=== PATIENT | female | born 1930 | race Asian ===

== ENCOUNTER 2016-08-19 09:01 | Emergency (ER) | payer OTHER, MEDICAID ==
[2016-08-19 09:19] VITALS: PULSE 85; RESP 18; TEMP 98
[2016-08-19] MEDS ORDERED: diphenhydrAMINE 25 MG CAP PO ONE (09:21)
[2016-08-19] MEDS ORDERED: FAMOTIDINE 20 MG TAB PO ONE (09:21)
[2016-08-19] MEDS ORDERED: predniSONE 20 MG TAB PO ONE (09:21)
--- NOTE | 2016-08-19 09:26 | EDPHY ---
H & P Time Seen by Provider: 08/19/16 09:10 HPI/ROS: HPI Itchy rash. 85-year-old female, Mandarin [place]. With daughter. Patient was mowing the lawn on Wednesday. Shortly after that she developed an itchy rash on her legs and arms starting from her hands up to her mid arm and her ankles up to her mid thigh. She describes having continued itching and irritation to these areas. She denies any oral involvement. She has not had any shortness of breath or wheezing. No sensation of swelling in her throat or difficulty swallowing. No voice changes. She denies any involvement of her trunk, neck or face. She has never had this before. No new medications. No other complaints. ROS: Constitutional: No fever, no chills. No weakness. Eyes: No discharge. No changes in vision. ENT: No sore throat. No nasal congestion or rhinorrhea. Respiratory: No cough. No shortness of breath. Cardiac: No chest pain, no palpitations. Gastrointestinal: No abdominal pain, no vomiting, no diarrhea. Genitourinary: No hematuria. No dysuria or increased frequency with urination. Musculoskeletal: No back pain. No neck pain. No myalgias or arthralgias. Skin: As above. Neurological: No headache. No focal weakness or altered sensation. Past medical history: Denies any significant past medical history. No prescription medications. Social history: Here with her daughter. Speaks Mandarin [place]ian only. Physical Exam: General Appearance: Alert, no distress. This patient is responding to questions appropriately and in full sentences. This patient appears well- hydrated and well-nourished. Eyes: Pupils equal and round no pallor or injection. No lid edema, erythema or injection. ENT, Mouth: Mucous membranes are moist. The pharyngeal tissues are unremarkable. No edema or swelling. No asymmetry suggestive of abscess. No erythema or exudates. Respiratory: There are no retractions, lungs are clear to auscultation with good air movement bilaterally. Cardiovascular: Regular rate and rhythm. No murmur. Neurological: Motor sensory function is grossly intact. Cranial nerves are normal. Gait is normal. Skin: Warm and dry, diffuse, mildly erythematous, blanching rash with some scabbed areas from the patient scratching over the hands and up through the forearms to the elbow and involving the ankles up through the distal thigh area anteriorly. No petechiae. No warmth. There is mild edema associated with the rash. Musculoskeletal: Neck is supple and nontender. Extremities are symmetrical. All joints range without pain or impingement. Psychiatric: No agitation. No depression. Database: EKG: Imaging: Procedures: Emergency department course: After my evaluation, and review of the patient's allergy history. She was given 40 mg of oral Pepcid, 50 mg of oral Benadryl and 60 mg of oral prednisone. History as well as management plan in the emergency department as an outpatient were all reviewed with the patient and her daughter by chimney repairer. Plan will be to send her home with prescriptions for these medications to be taken over the next 2-3 days. She has not been instructed to follow up with her primary care physician for re-evaluation at this time. Her vital signs have been reviewed. Customary return to emergency department precautions discussed. All of their questions were answered. She was discharged in good condition. Differential Diagnosis: The differential diagnosis on this patient includes but is not limited to hypersensitivity dermatitis. Anaphylaxis, erythema multiforme, TEN, pemphigus vulgaris, bolus pemphigoid unlikely. This represents a partial list of diagnoses considered. These considerations are based on history, physical exam , past history, reassessment and diagnostic testing. Smoking Status: Never smoked Constitutional: Initial Vital Signs Temperature (C) 36.6 C 08/19/16 09:17 Heart Rate 85 08/19/16 09:17 Respiratory Rate 18 08/19/16 09:17 Blood Pressure 120/66 08/19/16 09:17 O2 Sat (%) 97 08/19/16 09:17 O2 Delivery Mode Room Air Allergies/Adverse Reactions: No Known Allergies Allergy (Unverified 08/19/16 09:15) Home Medications: Medication Instructions Recorded Famotidine [Pepcid] 40 mg PO BID #12 tab 08/19/16 diphenhydrAMINE [Benadryl 50 MG 50 mg PO Q8HRS PRN #9 cap 08/19/16 (*)] predniSONE [prednisone 20mg (RX)] 60 mg PO DAILY #9 tab 08/19/16 Departure - Departure Disposition: Home, Routine, Self-Care Clinical Impression: Rash, Allergic reaction Condition: Good Instructions: Acute Rash (ED), General Allergic Reaction (ED) Additional Instructions: Read and follow provided instructions. Follow-up with your primary care physician in 2-3 days for re-evaluation. Take medication as prescribed for the next 2-3 days. Return to the emergency department for worsening rash, swelling, wheezing or difficulty breathing, or other serious concerns. [facility]errals: [facility] [Outside] - As per Instructions Mary Doe MD [Medical Doctor] - As per Instructions Prescriptions: diphenhydrAMINE [Benadryl 50 MG (*)] 50 mg PO Q8HRS PRN #9 cap PRN Reason: Itching Famotidine [Pepcid] 40 mg PO BID #12 tab predniSONE [prednisone 20mg (RX)] 60 mg PO DAILY #9 tab
[2016-08-19 10:05] VITALS: BP 112/62; O2SAT 96
== END 2016-08-19 10:05 | disposition home or self-care (01) ==
LOC: CED 09:01
DX: R21 Rash and other nonspecific skin eruption (principal); T78.40XA Allergy, unspecified, initial encounter

== ENCOUNTER 2017-01-20 14:18 | Inpatient (IN) | payer MEDICAID, OTHER ==
--- NOTE | 2017-01-20 14:34 | EDPHY ---
H & P Time Seen by Provider: 01/20/17 14:23 HPI/ROS: CHIEF COMPLAINT: Weakness, shortness of breath HISTORY OF PRESENT ILLNESS: The patient is an 86 y/o female complaining of weakness, shortness of breath, and a cough for two weeks. On December 24, 1 month ago, she flew back from [place]. She has been short of breath for the past month, but the shortness of breath dramatically worsened 2 days ago. Today she saw her PCP, Dr. Doe, who thought there was fluid in her lungs and recommended she go to the ED. Her daughter also noticed she has had difficulty using her walker due to the weakness. No chest pain or fever. Denies fever, history of cardiac disease, cancer, pulmonary embolism or other pertinent symptoms. Daughter translated during the exam. REVIEW OF SYSTEMS: Aside from elements discussed in the HPI, a comprehensive 10-point review of systems was reviewed and is negative. Past Medical/Surgical History: Pneumonia with pleural effusion, asthma Social History: Daughter at bedside, lives in [place] with daughter, originally from [place] Smoking Status: Never smoked Physical Exam: General Appearance: Weak, fatigued, O2Sat 90% at triage Eyes: Pupils equal and round, no conjunctival pallor or injection ENT, Mouth: Mucous membranes moist Neck: Normal inspection Respiratory: Tachypneic, diffuse rhonchi, decreased breath sounds on the right Cardiovascular: Irregular tachycardia, no murmur Gastrointestinal: Abdomen is soft and non-tender Neurological: A&O, nonfocal, gait not assessed Skin: Warm and dry, no rash Extremities: Nontender, 1+ pedal edema Psychiatric: Mood and affect normal Constitutional: Initial Vital Signs Temperature (C) 36.7 C 01/20/17 14:26 Heart Rate 104 H 01/20/17 14:26 Respiratory Rate 22 H 01/20/17 14:26 Blood Pressure 110/75 01/20/17 14:26 O2 Sat (%) 89 L 01/20/17 14:26 O2 Delivery Mode Nasal Cannula O2 (L/minute) 2 Allergies/Adverse Reactions: No Known Allergies Allergy (Unverified 08/19/16 09:15) Home Medications: Medication Instructions Recorded Furosemide [Lasix 20 MG (*)] 20 mg PO DAILY PRN 01/20/17 Herbals/Supplements -Info Only 1 ea PO DAILY 01/20/17 Medical Decision Making - Diagnostics EKG Interpretation: EKG interpreted by me reveals sinus tachycardia with a rate of 103, normal axis , normal intervals, ST and T segments normal. Interpretation: sinus tachycardia Imaging Results: Chest x-ray independently reviewed by me reveals a large right pleural effusion Imaging: I viewed and interpreted images myself ED Course/Re-evaluation: The patient is an 86 y/o female presenting with weakness and shortness of breath for the past 2 days. There are no old medical records were reviewed. On exam she is tachypneic and has diffuse rhonchi to auscultation. Her O2Sat was 89% at triage, she is currently at 95% on oxygen by nasal cannula. 1500: Chest x-ray reviewed by me, reveals right-sided pleural effusion. Blood cultures drawn. Ultrasound-guided thoracentesis ordered. 1502: EKG interpreted as sinus tachycardia 1513: Consulted with hospitalist service, Dr. Mensah accepts admission of this patient. She recommends I do not start antibiotics until after the thoracentesis. After the thoracentesis, the patient will have a CT pulmonary angiogram to rule out pulmonary embolism or evidence of cancer/pneumonia. 1515: Reassessed patient and discussed imaging findings and plan for admission. Patient and her daughter are comfortable with this plan. Differential Diagnosis: Differential diagnosis includes though it is not limited to pneumonia, pneumothorax, pulmonary embolism, aortic dissection, pericarditis, acute coronary syndrome. - Data Points Laboratory Results: Laboratory Results 01/20/17 14:35 01/20/17 14:35 Medications Given: Enoxaparin Sodium (Lovenox) 40 mg SC DAILY [facility] Stop: 07/20/17 08:59 Last Admin: 01/24/17 09:48 Dose: 40 mg Cefoxitin Sodium 1 gm/ (Dextrose) 50 mls @ 200 mls/hr IV Q6HRS EVIE PRN Reason: Protocol Stop: 02/21/17 17:59 Last Admin: 01/24/17 13:00 Dose: 50 mls Sodium Chloride (Salt Tablet) 1,000 mg PO TIDMEAL [facility] Stop: 07/20/17 07:59 Last Admin: 01/24/17 13:19 Dose: 1,000 mg Discontinued Medications Fentanyl (Sublimaze) 0 mcg IVP ONCALL PRN PRN Reason: Per provider during procedure Stop: 01/22/17 14:18 Last Admin: 01/22/17 13:21 Dose: 25 mcg Sodium Chloride (Ns) 500 mls @ 1,000 mls/hr IV EDNOW ONE PRN Reason: Protocol Stop: 01/20/17 15:34 Last Admin: 01/20/17 16:01 Dose: 500 mls Azithromycin 500 mg/ Dextrose 255 mls @ 255 mls/hr IV EDNOW ONE PRN Reason: Protocol Stop: 01/20/17 16:05 Last Admin: 01/20/17 19:21 Dose: Not Given Ceftriaxone Sodium/Dextrose (Rocephin 1 Gm (Premix)) 50 mls @ 100 mls/hr IV EDNOW ONE PRN Reason: Protocol Stop: 01/20/17 15:35 Last Admin: 01/20/17 19:21 Dose: Not Given Azithromycin 500 mg/ Dextrose 255 mls @ 255 mls/hr IV DAILY EVIE PRN Reason: Protocol Stop: 02/19/17 16:59 Last Admin: 01/20/17 19:21 Dose: Not Given Ceftriaxone Sodium/Dextrose (Rocephin 1 Gm (Premix)) 50 mls @ 100 mls/hr IV DAILY EVIE PRN Reason: Protocol Stop: 02/19/17 16:59 Last Admin: 01/22/17 09:14 Dose: 50 mls Departure - Departure Disposition: [facility] Inpatient Acute Clinical Impression: Pleural effusion, Respiratory compromise Condition: Fair Report Scribed for: Alissa Hassan Report Scribed by: Tatum Rodríguez Date of Report: 01/20/17 Time of Report: 14:26 Physician Review and Approval Statement: 01/20/17 14:26 Portions of this note were transcribed by a certified medical asst. I personally performed a history, physical exam, medical decision making, and confirmed accuracy of information the transcribed note.
[2017-01-20 14:48] LABS: ADD DIFF? YES; ADD MORPH? NO; ADD SCAN? NO; ATYPICAL LYMPHOCYTE FLAG 0 (0-99); FRAGMENT RBC FLAG 0 (0-99); HEMATOCRIT 38.1 % (38.0-47.0); HEMOGLOBIN 14.2 g/dL (12.6-16.3); LEFT SHIFT FLG 20 (0-99); LIPEMIA HEMOLYSIS FLAG 90 (0-99); MEAN CELL HEMOGLOBIN 30.4 pg (27.9-34.1); MEAN CELL HEMOGLOBIN CONCENTR. 37.3 g/dL (32.4-36.7); MEAN CELL VOLUME 81.6 fL (81.5-99.8); MEAN PLATELET VOLUME 8.2 fL (8.7-11.7); PLATELET CLUMPS FLAG 0 (0-99); PLATELET COUNT 178 10^3/uL (150-400); RED BLOOD CELL COUNT 4.67 10^6/uL (4.18-5.33); RED CELL DISTRIBUTION WIDTH 13.5 % (11.5-15.2)
--- NOTE | 2017-01-20 15:04 | CPEKG ---
Heart Rate: 103 RR Interval: 583 P-R Interval: 152 QRSD Interval: 80 QT Interval: 352 QTC Interval: 461 P [place]: 72 QRS [place]: 2 T Wave [place]: 44 EKG Severity - OTHERWISE NORMAL ECG - EKG Impression: SINUS TACHYCARDIA Electronically Signed By: Alissa Hassan 20-Jan-2017 21:32:59
[2017-01-20] MEDS ORDERED: NS 500 ML IV ONE (15:05)
[2017-01-20] MEDS ORDERED: AZITHROMYCIN IV 500 MG in D5W 250 ML IV ONE (15:06)
[2017-01-20] MEDS ORDERED: ONDANSETRON 4 MG/2 ML VIAL IVP PRN (15:16)
[2017-01-20] MEDS ORDERED: ACETAMINOPHEN 325 MG TAB PO PRN (15:16)
[2017-01-20] MEDS ORDERED: ONDANSETRON DISINTEGRATING 4 MG TAB PO PRN (15:16)
[2017-01-20 15:24] LABS: PLATELET ESTIMATE ADEQUATE (ADEQ)
[2017-01-20 15:51] LABS: COLOR AMBER; LEUKOCYTE ESTERASE,URINE 2+ (NEGATIVE); NITRITE,URINE NEGATIVE (NEGATIVE)
[2017-01-20] MEDS ORDERED: IPRATROPIUM/ALBUTEROL 3 ML DEYVIAL IH PRN (15:56)
[2017-01-20 15:58] LABS: INR 1.12 (0.83-1.16); PROTIME(PATIENT) 14.3 SEC (12.0-15.0)
[2017-01-20 15:59] LABS: APTT 27.8 SEC (23.0-38.0)
[2017-01-20 15:59] LABS: ANION GAP 12 mEq/L (8-16); CALCIUM 8.5 mg/dL (8.5-10.4); CARBON DIOXIDE 26 mEq/l (22-31); CHLORIDE 79 mEq/L (97-110); CREATININE 0.5 mg/dL (0.6-1.0); GLOMERULAR FILTRATION RATE > 60; GLUCOSE 123 mg/dL (70-100); LACTATE DEHYDROGENASE 598 IU/L (313-618); POTASSIUM 4.5 mEq/L (3.5-5.2)
[2017-01-20 16:05] LABS: BACTERIA 4+ /hpf (NONE SEEN); MUCUS 2+ /lpf (NONE-1+); WBC,URINE 50-182 /hpf (0-3)
[2017-01-20 16:07] LABS: SODIUM 117 mEq/L (134-144)
--- NOTE | 2017-01-20 16:15 | GHP ---
[f rep st] HISTORY AND PHYSICAL DATE OF ADMISSION: 01/20/2017 CHIEF COMPLAINT: Shortness of breath, right pleural effusion, pancreatic mass HISTORY OF PRESENT ILLNESS: 86 yo Mandarin-speaking female sent over from PCP with recurrent right pleural effusion and recent diagnosis of pancreatic mass ( 5x3cm) D[facility] Salcedo's Dec 2016. There she presented with pleural effusion and work-up showed suspected metastatic disease to liver and lung. CTA was negative for PE. Underwent thoracentesis and offered Palliative Care, but her daughter declined. Also treated for SIADH, with Na 124-127. History mainly from PCP and CORHIO. Pt did not participate in interview and daughter did not reveal h/o mass. I spoke with her PCP, Dr. Doe, who has been encouraging Palliative Care, because daughter seems to be denying the diagnosis. Nader sent patient here today for therapeutic tap and Oncology to consult with family for prognosis. Patient was visiting [id number] and returned here Dec 25. Since then, she suddenly developed significant weakness and sleeping all the time. Decreased PO intake. She is usually walks a couple miles daily. Has had intermittent sweats and chills, cough with mild yellow sputum production. No fevers, nausea, vomiting, diarrhea or dysuria. No chest pain or SOB. History of lower extremity edema was recently on a diuretic. No abdominal pain. REVIEW OF SYSTEMS: I completed a 10-point review of systems, negative except as noted in HPI. PAST MEDICAL HISTORY: Recently diagnosed Osteoporosis, asthma. SIADH. Echo : LVEF 65%, grade 1 diastolic dysfunction. PAST SURGICAL HISTORY: TKA, cataract, thyroidectomy. SOCIAL HISTORY: Lives in [place] in a home. No alcohol, tobacco, or illicits. Daughter lives in [place] FAMILY HISTORY: Arthritis. HOME MEDICATIONS: Benadryl, famotidine. ALLERGIES: No known drug allergies. PHYSICAL EXAMINATION: VITAL SIGNS: Temperature 36.7, blood pressure 112/77, heart rate 101, 96% on 2 L. GENERAL: Lying in bed, eyes closed, appears very fatigued. HEENT: PERRLA. EOMI. Dry mucous membranes. CV: Tachy, regular. No murmurs, gallops, rubs. LUNGS: Dull breath sounds from upper right lung field to base. Dullness to percussion. Rhonchorous on the left. ABDOMEN: Soft, nontender, nondistended. Positive bowel sounds. : No suprapubic tenderness. MUSCULOSKELETAL: Moving all 4 extremities. NEUROLOGIC: 2-12 intact. PSYCH: Not participating, not talking, lethargic. LABS: WBC 15, hemoglobin 14, hematocrit 38, platelets 178. BMP pending. UA pending. Chest x-ray is personally reviewed by me. Significant right-sided pleural effusion widening out the entire right lung field. EKG personally reviewed by me, sinus tachycardia. ASSESSMENT/PLAN: 1. Right pleural effusion: likely due to malignancy with recent imaging at OSH. Diagnostic thoracentesis here. BNP is pending. Lactate was normal. 2. Suspected metastatic pancreatic cancer: mass and mets to lungs/liver. Daughter does not believe it is cancer, because she has no lab confirmation. CA- 19 was sent incorrectly as last hospital. If confirmed cancer by that or cytology, then she wants to take her home and no treatment. CA-19-9, cytology pending here. 3. Shortness of breath: Room air sat was 89. This is secondary to effusion. 4. Asthma: Duonebs. No signs of exacerbation 5. Hyponatremia: underlying malignancy. Previously diagnosed with SIADH (Na 124- 127 in December at OSH). Last dose of Lasix a week ago. Check urine Osm, Na, q4hr BMP. Discussed case with Dr. Calderon who will consult. 6. Weakness: multifactorial with malignancy, hyponatremia, UTI. PT consult 7. UTI: culture pending. IV CTX 8. Leukocytosis: DDx: UTI, cancer, or could be aspirating. Afebrile here. Treat for UTI at this time. If fevers, consider coverage for PNA. Urine/blood cultures pending. 9. Deep venous thrombosis prophylaxis: Lovenox. DISPOSITION: Patient warrants ICU admission for severe hyponatremia, serial BMPs. IV antibiotics. #Goals: daughter just wants lab confirmation of cancer and not seeking treatment. She does want UTI and hyponatremia treated. Critical care time spent 90 min bedside with patient and d/w daughter. Remaining time reviewing CORHIO and d/w DR. Doe and Dr. Calderon. /[id number]/MODL MTDD
[2017-01-20 16:19] LABS: ALANINE AMINOTRANSFERASE 42 IU/L (9-52); ALKALINE PHOSPHATASE 104 IU/L (38-126); ANION GAP 9 mEq/L (8-16); ASPARTATE AMINOTRANSFERASE 30 IU/L (14-46); BILIRUBIN,TOTAL 1.1 mg/dL (0.1-1.4); CALCIUM 8.2 mg/dL (8.5-10.4); CARBON DIOXIDE 28 mEq/l (22-31); CHLORIDE 78 mEq/L (97-110); CREATININE 0.5 mg/dL (0.6-1.0); GLOMERULAR FILTRATION RATE > 60; GLUCOSE 118 mg/dL (70-100); POTASSIUM 4.4 mEq/L (3.5-5.2)
[2017-01-20 16:27] LABS: SODIUM 115 mEq/L (134-144)
[2017-01-20] MEDS ORDERED: LIDOCAINE 1% 300 MG/30 ML SDV ONE (16:29)
[2017-01-20] MEDS ORDERED: ALTEPLASE 2 MG VIAL IVP PRN ×2 (16:54→18:29)
[2017-01-20] MEDS ORDERED: AZITHROMYCIN IV 500 MG in D5W 250 ML IV SCH (17:00)
--- NOTE | 2017-01-20 19:36 | GCON ---
[f rep st] CONSULTATION REQUESTING: Dr. Mensah. REASON FOR CONSULTATION: Hyponatremia. HISTORY OF PRESENT ILLNESS: Ms. Rodgers is an 86-year-old Australian female with no past medical history wh inocencio is admitted to the hospital due to weakness and pleural effusion. She traveled to [place] for 3 gelacio hs and got back on December 13. Sometime during her trip to [place] she became very weak and was evalu ated there by doctors and found to have low potassium and per her daughter, a pancreas infection. He r potassium was replaced and she was sent home. She came back to the [facility]. Here she contin ued to exhibit weakness. Her daughter brought her in to her primary doctor, Dr. Doe, who apparently sent her for a thoracentesis not too long ago. She continued to feel worse and the daughter brought her back to Dr. Doe who then referred her to the hospital. Here she was found to have almost complet e opacification of the right hemithorax due to pleural effusion as well as a sodium level of 116. She received a half-liter of normal saline in the emergency department and her sodium dropped to 115. She was referred to Interventional Radiology where she underwent large volume thoracentesis of what looks like about 1.3 L. We were asked to help evaluate her low sodium. Her daughter states that lee ann alanis has not been eating much except for protein supplements that she has prepared. She has been trying to give her water. She has not been confused or had falls, but has had progressive weakness. Prior to this illness she has been a picture of health per her daughter. The history is taken from Lenny Mensah and the patient's daughter, but not from the patient as she is not able to speak Uzbek an d is very tired. PAST MEDICAL HISTORY: No known medical problems. Recently diagnosed with osteoporosis, asthma and S IADH. Ejection fraction in December was 65% with diastolic dysfunction. MEDICATIONS: She takes Benadryl and famotidine at home. SOCIAL HISTORY: She does not smoke or drink alcohol. She is from [place] and moved to the [facility] in 2002. FAMILY HISTORY: Noncontributory. REVIEW OF SYSTEMS: See HPI. Per the daughter she has not had any nausea, vomiting, diarrhea, fevers , dysuria. There is no history of diarrhea. The patient denies shortness of breath or chest pain. I did not obtain further review of systems as patient is very tired and speaks Australian. It does soun d like she has had some intermittent chills and sweats as well as a cough and apparently has recently been on a diuretic for edema. After initial evaluation, I did find further information and have learned that she has recently been admitted to [facility] in December where she was diagnosed with a pleural effusion and p ancreatic mass with suspected metastasis to lung and liver. She had a negative CT angiogram for pulm onary embolism. She was also treated for SIADH at that time with a sodium between 124 and 127. Her daughter declined offer for palliative care at that time. SURGICAL HISTORY: Right total knee replacement, cataract and thyroidectomy. ALLERGIES: No known allergies. PHYSICAL EXAMINATION: VITAL SIGNS: 101/75 for blood pressure, heart rate 99, respirations 20, 98% on 2 L nasal cannula, 36.9 Celsius. GENERAL: This is a very weak, frail, tired-appearing Australian fema le in no acute distress. HEENT: Head atraumatic. Eyes: No scleral icterus. Oral mucosa is dry with white food material cak ed on her tongue. NECK: Soft and supple. No lymphadenopathy in the cervical or supraclavicular reg ion. HEART: Regular rate and rhythm without murmurs, gallops, rubs. LUNGS: With diminished breath sounds on the right side anteriorly. Clear on the left. ABDOMEN: Soft, nontender, nondistended. EXTREMITIES: Lower extremities with 1+ ankle pitting edema. Posterior tib pulses 1+ bilaterally. S KIN: Without rashes. MUSCULOSKELETAL: She has a well-healed right knee incision. NEUROLOGICAL: A ppears grossly nonfocal. She is lethargic. SKIN: Without rashes. LABORATORY: White count 15, hemoglobin 14, platelets 178. Sodium 115, potassium 4.4, CO2 28, BUN 11 , creatinine 0.5. Serum osmolality 249, calcium 8.2, LFTs normal, albumin 3.0, LDH 598. Urinalysis did show 1+ ketones, 2+ leukocyte esterase, and a lot of white cells, 4+ bacteria. I personally reviewed her chest x-ray on admission which showed almost complete opacification of the right hemithorax. After thoracentesis there was a pleural effusion obscuring about the right bottom 3rd of her right hemithorax. IMPRESSION AND PLAN: 1. Hyponatremia. Most likely due to syndrome of inappropriate antidiuretic hormone secretion from w felicity sounds like a recently diagnosed pancreatic cancer. There is no need to correct rapidly as she i s asymptomatic. We will simply fluid restrict her and start her on some salt tablets for the time be ing. We can consider adding Lasix if needed. We will check sodium levels every 4 hours. I do not t hink that she is going to correct overly rapidly. I will not add IV fluids at this time until we hav e urine studies back which are pending. I will check a TSH and a cortisol. 2. Pleural effusion. Based on recent historical facts obtained, she probably has metastatic pancrea tic cancer. Await pleural fluid studies and further outside records. Status post thoracentesis toda y. 3. Urinary tract infection. Recommend starting her on an antibiotic. She has been already started on ceftriaxone. Await urine culture. 4. Probable pancreatic cancer. Further records from outside hospital. If she truly has metastatic disease, than palliative care would be appropriate. Thank you for this consultation. /[id number]/MODL
[2017-01-20 20:51] LABS: ANION GAP 8 mEq/L (8-16); CALCIUM 7.2 mg/dL (8.5-10.4); CARBON DIOXIDE 26 mEq/l (22-31); CHLORIDE 83 mEq/L (97-110); CREATININE 0.4 mg/dL (0.6-1.0); GLOMERULAR FILTRATION RATE > 60; GLUCOSE 107 mg/dL (70-100); POTASSIUM 3.6 mEq/L (3.5-5.2)
[2017-01-20 21:07] LABS: SODIUM 117 mEq/L (134-144)
[2017-01-20 23:31] LABS: ANION GAP 7 mEq/L (8-16); CALCIUM 7.8 mg/dL (8.5-10.4); CARBON DIOXIDE 27 mEq/l (22-31); CHLORIDE 80 mEq/L (97-110); CREATININE 0.4 mg/dL (0.6-1.0); GLOMERULAR FILTRATION RATE > 60; GLUCOSE 116 mg/dL (70-100); POTASSIUM 3.8 mEq/L (3.5-5.2)
[2017-01-20 23:33] LABS: SODIUM 114 mEq/L (134-144)
[2017-01-21 02:59] LABS: ANION GAP 8 mEq/L (8-16); CALCIUM 7.7 mg/dL (8.5-10.4); CARBON DIOXIDE 29 mEq/l (22-31); CHLORIDE 82 mEq/L (97-110); CREATININE 0.4 mg/dL (0.6-1.0); GLOMERULAR FILTRATION RATE > 60; GLUCOSE 117 mg/dL (70-100); POTASSIUM 3.9 mEq/L (3.5-5.2)
[2017-01-21 03:01] LABS: SODIUM 119 mEq/L (134-144)
[2017-01-21 06:27] LABS: HEMATOCRIT 33.2 % (38.0-47.0); HEMOGLOBIN 11.9 g/dL (12.6-16.3); MEAN CELL HEMOGLOBIN 29.5 pg (27.9-34.1); MEAN CELL HEMOGLOBIN CONCENTR. 35.8 g/dL (32.4-36.7); MEAN CELL VOLUME 82.4 fL (81.5-99.8); RED BLOOD CELL COUNT 4.03 10^6/uL (4.18-5.33); RED CELL DISTRIBUTION WIDTH 13.5 % (11.5-15.2)
[2017-01-21 06:34] LABS: ANION GAP 5 mEq/L (8-16); CALCIUM 7.5 mg/dL (8.5-10.4); CARBON DIOXIDE 29 mEq/l (22-31); CHLORIDE 85 mEq/L (97-110); CREATININE 0.5 mg/dL (0.6-1.0); GLOMERULAR FILTRATION RATE > 60; GLUCOSE 110 mg/dL (70-100); POTASSIUM 3.8 mEq/L (3.5-5.2)
[2017-01-21 06:36] LABS: SODIUM 119 mEq/L (134-144)
[2017-01-21 07:06] LABS: CORTISOL-AM 29.2 ug/dL (4.5-22.7)
[2017-01-21] MEDS ORDERED: NS 1,000 ML IV SCH (07:30)
[2017-01-21] MEDS: ENOXAPARIN 40 MG/0.4 ML SYR SC SCH (08:47)
[2017-01-21] MEDS: SODIUM CHLORIDE 1,000 MG TAB PO SCH ×3 (08:47→18:13)
[2017-01-21 10:36] LABS: ANION GAP 7 mEq/L (8-16); CALCIUM 7.5 mg/dL (8.5-10.4); CARBON DIOXIDE 27 mEq/l (22-31); CHLORIDE 84 mEq/L (97-110); CREATININE 0.4 mg/dL (0.6-1.0); GLOMERULAR FILTRATION RATE > 60; GLUCOSE 123 mg/dL (70-100); POTASSIUM 3.6 mEq/L (3.5-5.2)
[2017-01-21 10:42] LABS: SODIUM 118 mEq/L (134-144)
--- NOTE | 2017-01-21 10:47 | SOAPPROG ---
SOAP Progress Note Assessment/Plan: Assessment:Plan: Hyponatremia-slowly better -118-120 this am -low urine Na consistent with hypovolemic hyponatremia -CPM with NS at current rate -repeat urine lytes if rate of correction either too slow or too rapid -goal is no more than 8mEq in any 24 hour period -TSH and cortisol normal 01/21/17 10:45 Subjective: sleeping soundly Objective: Vital Signs Temp Pulse Resp BP Pulse Ox 37.3 C 111 H 22 H 91/63 L 94 01/21/17 10:00 01/21/17 10:00 01/21/17 10:00 01/21/17 10:00 01/21/17 10:00 Microbiology 01/20/17 17:30 Gram Stain - Final Pleural Fluid - Aspirate Laboratory Results 01/21/17 06:00 01/21/17 10:02 01/20/17 01/21/17 01/22/17 05:59 05:59 05:59 Intake Total 861 Output Total 300 Balance 561 PT 14.3 SEC (12.0-15.0) 01/20/17 13:44 INR 1.12 (0.83-1.16) 01/20/17 13:44 Physical Exam - Physical Exam General Appearance: no apparent distress, thin EENT: normal ENT inspection Neck: normal inspection Respiratory: decreased breath sounds Cardiac/Chest: regular rate, rhythm, No systolic murmur Abdomen: normal bowel sounds, non-tender, soft Skin: normal color Extremities: No swelling ICD10 Worksheet Patient Problems: Problems Problem Status Onset Pleural effusion Acute Pneumonia Acute
--- NOTE | 2017-01-21 10:53 | PDMN ---
Medical Necessity Medical necessity: Pt meets IP criteria per MD; est los >2 mn for eval/tx of R pleural effusion likely r/t malignancy, severe hyponatremia, weakness & UTI; comorbid pancreatic mass/suspected mets to liver & lung, SIADH, diastolic dysfunction; per H&P & order 01/20/17
--- NOTE | 2017-01-21 14:13 | HOSPPROG ---
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 Hunter - he is reviewing the case to assistant corporation counsel patient and family tomorrow Subjective: SOB Objective: Vital Signs Temp Pulse Resp BP Pulse Ox 37.3 C 101 H 11 L 96/61 L 97 01/21/17 12:00 01/21/17 12:00 01/21/17 12:00 01/21/17 12:00 01/21/17 12:00 Microbiology 01/20/17 17:30 Mycobacterial Smear (VANESA) - Final Pleural Fluid - Aspirate 01/20/17 17:30 Gram Stain - Final Pleural Fluid - Aspirate Laboratory Results 01/21/17 06:00 01/21/17 11:53 01/20/17 01/21/17 01/22/17 05:59 05:59 05:59 Intake Total 861 Output Total 300 Balance 561 PT 14.3 SEC (12.0-15.0) 01/20/17 13:44 INR 1.12 (0.83-1.16) 01/20/17 13:44 - Physical Exam Constitutional: appears nourished Eyes: anicteric sclera Ears, Nose, Mouth, Throat: moist mucous membranes Cardiovascular: regular rate and rhythym Respiratory: no respiratory distress, reduced air movement Gastrointestinal: normoactive bowel sounds Genitourinary: no bladder fullness Skin: warm Musculoskeletal: No asymmetric calves Neurologic: AAOx3 Psychiatric: No agitated Lymph, Heme, Immunologic: no cervical LAD ICD10 Worksheet Patient Problems: Problems Problem Status Onset Pleural effusion Acute Pneumonia Acute
[2017-01-21 14:53] LABS: ANION GAP 5 mEq/L (8-16); CALCIUM 7.4 mg/dL (8.5-10.4); CARBON DIOXIDE 28 mEq/l (22-31); CHLORIDE 86 mEq/L (97-110); CREATININE 0.4 mg/dL (0.6-1.0); GLOMERULAR FILTRATION RATE > 60; GLUCOSE 101 mg/dL (70-100); POTASSIUM 3.5 mEq/L (3.5-5.2)
[2017-01-21 14:57] LABS: SODIUM 119 mEq/L (134-144)
--- NOTE | 2017-01-21 15:56 | GCON ---
[f rep st] CONSULTATION INPATIENT ONCOLOGY CONSULTATION DATE OF CONSULTATION: 01/21/2017 REQUESTING PHYSICIAN: Dr. Finesse Gregory. REASON FOR CONSULTATION: Metastatic cancer. Likely pancreatic. HISTORY OF PRESENT ILLNESS: The patient is an 86-year-old woman who presents with what appears to be widely metastatic pancreatic cancer. This patient is Mandarin speaking only and I received most of the history through review of the medical chart and speaking with her daughter. The daughter relates that her mother has been very healthy, but last month began to feel very weak and tired and became unable to walk. She was admitted to [facility] from December 26 to . I reviewed the medical record from that hospitalization in detail. She was found to have multiple lung nodules up to 1.3 cm as well as cystic lesions in the liver up to 7 cm, a 5.1 cm mass in the body of the pancreas, and a right-sided pleural effusion. The pleural effusion was tapped and cytology was positive for carcinoma. She had hyponatremia as well. It was recommended to the patient and her family that she pursue hospice, given that this appeared to be a metastatic pancreatic cancer. The daughter states that she does not believe the results from [facility] and thinks that the cytology may have been incorrect. She also did not believe that all the lesions seen on the CT were related cancer. In any event, today, she came into the hospital yesterday with a recurrent pleural effusion, weakness, and sodium down to 114. The patient remains very weak and is bedbound. Another thoracentesis was done and cytology is pending. Her sodium has improved mildly to 119 after fluid restriction. CA-19-9 is pending as well. PAST MEDICAL HISTORY: Otherwise unremarkable. CURRENT MEDICATIONS: Include DuoNeb, ceftriaxone, Lovenox, and salt tablets. ALLERGIES: She has no known drug allergies. FAMILY HISTORY: Noncontributory. SOCIAL HISTORY: She is from [place]. She is currently living with family in [place]. REVIEW OF SYSTEMS: Pertinent positives as listed in the HPI. A 14-point review of system was negative. EXAMINATION: VITAL SIGNS: Her temperature was 36.9, blood pressure 99/59, heart rate 103, and oxygen saturation 96% on 2 L. GENERAL: She was an elderly woman lying in bed, very listless but awake. Sclerae were anicteric. Oropharynx is clear. NECK: Supple without lymphadenopathy. LUNGS: Notable for dullness at the right base. CARDIAC: Regular rate and rhythm. No murmurs , gallops, rubs. ABDOMEN: Normoactive bowel sounds. Nontender. Nondistended. EXTREMITIES: 2+ edema. NEUROLOGICAL: Not tested due to language barrier. LABORATORY RESULTS: White count 12.5, hemoglobin 11.9, platelets 141. Sodium 119, potassium 3.5, chloride 86, bicarb 28, BUN 8, creatinine 0.4. TSH 1.26. Albumin 3.0. Random liver function tests were normal. LDH normal as well. IMPRESSION: This is an 86-year-old woman who presents with widespread metastatic malignancy. Based on the radiographic appearance, the most likely primary source is the pancreas. It seems highly unlikely she has an occult breast cancer causing this distribution of lesions without a primary tumor being seen on imaging or on exam. A lung cancer is also a possibility. It is certain, however, that she does have metastatic cancer due to the cytology results from [facility]. I explained to the daughter that there is no reason to suspect that these results are erroneous. Hopefully, the cytology specimen from [facility] will confirm this, but I did warn her that if it is negative, it likely reflects the relatively low sensitivity of cytology examination for detecting cancer. It is , however, an extremely specific test. We discussed that, given this metastatic malignancy, there is really nothing further we can do to treat it, given her poor performance status. Pancreatic cancer, in particular, is very difficult to treat and the only available therapies are a cytotoxic chemotherapy drugs, which would clearly make her condition worse and hasten her demise. Her daughter is in agreement on this point. She still seems to believe that things might get better, but did seem to understand that there is not much we are going to be able to do about this. I did recommend the placement of a PleurX catheter to allow repeated drainage of the pleural effusion, which may help with her symptoms. We can try to continue to correct her sodium with salt tablets and fluid restriction, which seemed to be of importance to the daughter, though I explained to her that this is really a result of the cancer and that correcting that number is not necessarily going to help her mother feel any better and certainly will not help her live any longer. We will have a family meeting tomorrow at noon with an forepart laster where we can hopefully move things in the direction of hospice and comfort care, which I think is clearly the most appropriate thing, given the patient's age, her performance status, and the underlying malignancy. Thank you for this consultation. It was pleasure to meet this patient and I appreciate the opportunity to be involved in her care. /[id number]/MODL MTDD
--- NOTE | 2017-01-21 16:28 | ASMTCASEMG ---
Living Arrangements What is your living Answers: With Child(navdeep) arrangement? Who do you live with? Type Of Residence What kind of residence do Answers: House you live in? Discharge Plan Comments Coordination Status Comments Notes: Met with patient's daughterNadeen regarding the family meeting tomorrow at 12:00 as well as how long she will remain in [place] before returning home to [place]. Dr. Hunter, oncologist joined the conversation. He graciously answered all of Nadeen's questions including confirming patient's diagnosis of cancer. Nadeen states the family is not ready for hospice for her mother and she would like to have supportive services set up so her mother can return to her sister's house in [place]. Dr. Hunter discussed a pleural drain for patient to keep the fluid drained off her lungs per Nadeen's requests.Patient already has [facility] with PT,OT,SPL and nursing.Patient has both medicaid and medicare. We will explore any options they have for support services for the family and the patient. Nadeen would like a shipping and receiving associate for her mother during the day while her sister is at work. Discussed [facility] but let patient know it may be an out of pocket expense. Will explore options and come up with a final d/c plan tomorrow at the family meeting. CM will follow. Date Signed: 01/21/2017 04:28 PM Electronically Signed By:Irene Stiles LCSW
--- NOTE | 2017-01-22 08:35 | SOAPPROG ---
SOAP Progress Note Assessment/Plan: Assessment:Plan: Hyponatremia-slowly better -125 this am -rate of rise is good -lab frequency reduced -low urine Na consistent with hypovolemic hyponatremia -CPM with NS at current rate -repeat urine lytes if rate of correction either too slow or too rapid -goal is no more than 8mEq in any 24 hour period -TSH and cortisol normal Heme-evaluation of pancreatic mass, carcinoma in progress 01/22/17 08:33 Subjective: stable overnite Objective: Vital Signs Temp Pulse Resp BP Pulse Ox 37.5 C 102 H 22 H 98/61 L 99 01/22/17 06:00 01/22/17 06:00 01/22/17 06:00 01/22/17 06:00 01/22/17 06:00 Microbiology 01/20/17 17:30 Gram Stain - Final Pleural Fluid - Aspirate 01/20/17 17:30 Mycobacterial Smear (VANESA) - Final Pleural Fluid - Aspirate Laboratory Results 01/21/17 06:00 01/22/17 06:00 01/21/17 01/22/17 01/23/17 05:59 05:59 05:59 Intake Total 861 1752 Output Total 300 525 Balance 561 1227 PT 14.3 SEC (12.0-15.0) 01/20/17 13:44 INR 1.12 (0.83-1.16) 01/20/17 13:44 Physical Exam - Physical Exam General Appearance: no apparent distress, thin EENT: normal ENT inspection Neck: normal inspection Respiratory: crackles, rales Cardiac/Chest: regular rate, rhythm, No systolic murmur Abdomen: normal bowel sounds, non-tender Skin: warm/dry Extremities: No swelling Neuro/Psych: no motor/sensory deficits, alert (per daughter) ICD10 Worksheet Patient Problems: Problems Problem Status Onset Pleural effusion Acute Pneumonia Acute
--- NOTE | 2017-01-22 09:42 | HOSPPROG ---
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 (Na 124-127 then) # Pleural effusions, malignant - s/p prior thoracentesis elsewhere - oxygen saturations 97% on 2L - cytology pending here # suspected UTI - UA grossly abnormal # Suspected Pancreatic CA - with metastasis based on outside imaging - Ca19-9 pending # proph - lovenox # diet - regular Reviewed with Dr Gregory today seen on multidisc rounds today PLANS: - receiving slow NS per nephrology to avoid rapid correction - continuing SIADH fluid restriction/salt tabs - for pleurex catheter placement today - empiric ceftriaxone, monitor urine culture - family meeting re goals of care today SUBJECTIVE: Seen with the patient's daughter as family support worker who is very fluent in both the patient is negative Kiswahili and Carlito. The patient does not have pain discomfort or nausea today, remains very weak OBJECTIVE Vitals reviewed: Remains with some tachycardia and tachypnea, no fever Drill Press Operator [employer], my review: Sinus Exam: alert oriented Appears very weak and fatigued skin warm dry color ok resps not labored lungs clear BSs on left, consolidation consistent with her effusion on the right , no rales heart regular abd soft nondistended nontender, bowel sounds present limbs warm, no edema iv site ok Laboratory data: Sodium up slightly at 125 this morning Renal function stable Objective: Vital Signs Temp Pulse Resp BP Pulse Ox 36.7 C 102 H 25 H 112/63 98 01/22/17 08:00 01/22/17 08:00 01/22/17 08:00 01/22/17 08:00 01/22/17 08:00 Microbiology 01/20/17 15:35 Urine Culture - Final Urine,Clean Catch Escherichia Coli Esbl 01/20/17 17:30 Gram Stain - Final Pleural Fluid - Aspirate 01/20/17 17:30 Mycobacterial Smear (VANESA) - Final Pleural Fluid - Aspirate Laboratory Results 01/21/17 06:00 01/22/17 06:00 11/11/2901/22/17 01/23/17 06:59 06:59 06:59 Intake Total 861 1752 Output Total 300 525 Balance 561 1227 PT 14.3 SEC (12.0-15.0) 01/20/17 13:44 INR 1.12 (0.83-1.16) 01/20/17 13:44 - Time Spent With Patient Time Spent with Patient: greater than 35 minutes Time Spent with Patient: Greater than 35 minutes spent on this patients care, greater than 50% of time spent counseling, educating, and coordinating care regarding the above mentioned plan. ICD10 Worksheet Patient Problems: Problems Problem Status Onset Pleural effusion Acute Pneumonia Acute
[2017-01-22] MEDS ORDERED: TEARS/DEXTRAN 70/HYPROMELLOSE 15 ML OPHT.BTL EACHEYE PRN (10:33)
[2017-01-22] MEDS: SODIUM CHLORIDE 1,000 MG TAB PO SCH ×3 (12:18→18:02)
[2017-01-22] MEDS ORDERED: fentaNYL 100 MCG/2 ML INJ IVP PRN (13:17)
[2017-01-22] MEDS ORDERED: HEPARIN 10,000 UNIT/10 ML MDV IVP PRN (13:17)
[2017-01-22] MEDS ORDERED: MIDAZOLAM 2 MG/2 ML VIAL IVP PRN (13:17)
[2017-01-22] MEDS ORDERED: NALOXONE HCL 0.4 MG/ML INJ IVP PRN (13:17)
[2017-01-22] MEDS ORDERED: MEPERIDINE 25 MG/ML SYR IVP PRN (13:17)
[2017-01-22] MEDS ORDERED: PROTAMINE SULFATE 50 MG/5 ML VIAL IVP PRN (13:17)
[2017-01-22] MEDS ORDERED: FLUMAZENIL 0.5 MG/5 ML MDV IVP PRN (13:17)
[2017-01-22] MEDS ORDERED: GLUCAGON HCL 1 MG VIAL IVP PRN (13:17)
[2017-01-22] MEDS ORDERED: ALTEPLASE 2 MG VIAL IVP PRN (13:17)
[2017-01-22] MEDS ORDERED: fentaNYL 100 MCG/2 ML INJ ONE (13:19)
--- NOTE | 2017-01-22 13:23 | SOAPPROG ---
SOAP Progress Note Assessment/Plan: Assessment: 1. Metastatic carcinoma, likely pancreatic 2. Malignant pleural effusion 3. Liver and lung mets 4. Hyponatremia - likely SIADH Family meeting held today w/ 4 siblings (including Nadeen, whom i spoke to yesterday) using [employer] telephone assistant public defender. I explained that Mrs. Rodgers has metastatic cancer, likely pancreatic in origin. This was proven by the positive cytology results at [facility]. Nadeen is skeptical of those results and would like to see the results from [facility] (which are pending), but I told her that there is no doubt in my mind that they are accurate. We discussed that this disease would be extremely difficult to treat given that the only effective therapy is cytotoxic chemo, which would likely make things worse given the patient's performance status. The family is in agreement and also agreed to make her DNR. Nadeen would like to treat her UTI, correct her serum sodium, and place the Pleurex catheter prior to discharge. I think this is reasonable though I explained that the hyponatremia is being driven by the underlying cancer and may not correct completely. She is also interested in taking her back to [place] to live with her. We will look into medical transport- I cautioned her that this could be very expensive and would not likely be covered by insurance. 60 min spent w/ pt and in coordination of care. Plan: 01/22/17 13:18 Objective: Vital Signs Temp Pulse Resp BP Pulse Ox 37.4 C 99 19 99/60 L 100 01/22/17 12:00 01/22/17 12:00 01/22/17 12:00 01/22/17 12:00 01/22/17 12:00 Microbiology 01/20/17 17:30 Gram Stain - Final Pleural Fluid - Aspirate 01/20/17 15:35 Urine Culture - Final Urine,Clean Catch Escherichia Coli Esbl 01/20/17 17:30 Mycobacterial Smear (VANESA) - Final Pleural Fluid - Aspirate Laboratory Results 01/21/17 06:00 01/22/17 12:10 01/21/17 01/22/17 01/23/17 05:59 05:59 05:59 Intake Total 861 1752 Output Total 300 525 Balance 561 1227 PT 14.3 SEC (12.0-15.0) 01/20/17 13:44 INR 1.12 (0.83-1.16) 01/20/17 13:44 ICD10 Worksheet Patient Problems: Problems Problem Status Onset Pleural effusion Acute Pneumonia Acute
[2017-01-22] MEDS ORDERED: NS 1,000 ML IV SCH (13:30)
--- NOTE | 2017-01-22 13:54 | PDRADPN ---
Radiology Procedure Note Date of Procedure: 01/22/17 Radiologist: Hero Quiroz Anesthesia: IV Sedation (25 mcg fentanyl), Local (Specify) (15 cc 1% lidocaine) Pre-op Diagnosis: Malignant pleural effusion Post-op Diagnosis: Same Indication: Malignant pleural effusion Procedure: Rt chest PleurX Finding(s): See report Inf/Abcess present in the surg proc area at time of surgery?: No Depth: Organ Space (Rt pleural) Complications: No immediate Drains: Other (Rt PleurX)
--- NOTE | 2017-01-22 16:15 | ASMTCMCOM ---
CM Note CM Note Notes: Family meeting today to review patient's current medical status and decide upon d/c plan. Dr Hunter explained the patient's condition and his recommendations for the patient to all the patient's children with the assist of an shallot packer. Nadeen who is the daughter that has been most active in her mother's care decided she would like to take her mother home with her to [place]. Dr. Hunter made it clear it would be unsafe to move her mother that far unless it was a medical transport. Nadeen would like assistance with finding out the cost of a medical flight service to [place], [place] and what the cost would be to transport her medical ground transport to [facility]. Nadeen says they do not want to go the hospice route even though the explained what support they could offer and how it was the best option. Dr. Hunter also explained the patient's condition could progress very rapidly and it would be best to be prepared for this possibility. Patient is being transferred to . [facility] will follow up with the patient and family there. Date Signed: 01/22/2017 04:14 PM Electronically Signed By:Irene Stiles LCSW
[2017-01-22] MEDS: cefOXitin SODIUM 1 GM in D5W 50 ML IV SCH ×2 (18:02→23:53)
[2017-01-22 20:26] LABS: LD, PLEURAL FLUID 1172 IU/L
[2017-01-23 05:04] LABS: ALBUMIN 2.3 g/dL (3.5-5.0); ANION GAP 6 mEq/L (8-16); CALCIUM 7.6 mg/dL (8.5-10.4); CARBON DIOXIDE 26 mEq/l (22-31); CHLORIDE 93 mEq/L (97-110); CREATININE 0.4 mg/dL (0.6-1.0); GLOMERULAR FILTRATION RATE > 60; GLUCOSE 122 mg/dL (70-100); POTASSIUM 3.6 mEq/L (3.5-5.2); SODIUM 125 mEq/L (134-144)
[2017-01-23] MEDS: cefOXitin SODIUM 1 GM in D5W 50 ML IV SCH ×4 (05:12→23:36)
--- NOTE | 2017-01-23 08:19 | SOAPPROG ---
SOAP Progress Note Assessment/Plan: Assessment:Plan: Hyponatremia-unchanged -125 this am -rate of rise had been good -now stalled -likely represents a mixed disorder -volume depletion has been effectively treated -now likely consistent with SIADH -recheck urine studies -stop IVF -lab frequency reduced to daily -on admit had low urine Na consistent with hypovolemic hyponatremia -goal is no more than 8mEq in any 24 hour period -TSH and cortisol normal Heme-evaluation of pancreatic mass, carcinoma in progress 01/23/17 08:16 Subjective: sleeping Objective: Vital Signs Temp Pulse Resp BP Pulse Ox 36.4 C 106 H 16 112/72 94 01/23/17 04:00 01/23/17 04:00 01/23/17 04:00 01/23/17 04:00 01/23/17 04:00 Microbiology 01/20/17 17:30 Gram Stain - Final Pleural Fluid - Aspirate 01/20/17 15:35 Urine Culture - Final Urine,Clean Catch Escherichia Coli Esbl Laboratory Results 01/21/17 06:00 01/23/17 04:30 01/22/17 01/23/17 01/24/17 05:59 05:59 05:59 Intake Total 1752 522 Output Total 525 1150 Balance 1227 -628 PT 14.3 SEC (12.0-15.0) 01/20/17 13:44 INR 1.12 (0.83-1.16) 01/20/17 13:44 Physical Exam - Physical Exam General Appearance: no apparent distress, thin EENT: normal ENT inspection Neck: normal inspection Respiratory: decreased breath sounds Cardiac/Chest: regular rate, rhythm Abdomen: normal bowel sounds Skin: normal color Extremities: No swelling Neuro/Psych: other (sleeping) ICD10 Worksheet Patient Problems: Problems Problem Status Onset Pleural effusion Acute Pneumonia Acute
--- NOTE | 2017-01-23 08:30 | SOAPPROG ---
SOAP Progress Note Assessment/Plan: Assessment: 1. Metastatic pancreatic cancer: the cytology from [facility] is pending. Overall plan is hospice. 2. E. Coli UTI: cefoxitin 3. Pleural effusion 2ndary to #1: Tap prn Plan: 01/23/17 08:27 Subjective: this is a 86 yo Madarin speaking female with metastatic pancreatic cancer to liver, lung, and pleura. She has a UTI. The plan is to review final path and obtain hospice care. Objective: Vital Signs Temp Pulse Resp BP Pulse Ox 36.4 C 106 H 16 112/72 94 01/23/17 04:00 01/23/17 04:00 01/23/17 04:00 01/23/17 04:00 01/23/17 04:00 Microbiology 01/20/17 17:30 Gram Stain - Final Pleural Fluid - Aspirate 01/20/17 15:35 Urine Culture - Final Urine,Clean Catch Escherichia Coli Esbl Laboratory Results 01/21/17 06:00 01/23/17 04:30 01/22/17 01/23/17 01/24/17 05:59 05:59 05:59 Intake Total 1752 522 Output Total 525 1150 Balance 1227 -628 PT 14.3 SEC (12.0-15.0) 01/20/17 13:44 INR 1.12 (0.83-1.16) 01/20/17 13:44 ICD10 Worksheet Patient Problems: Problems Problem Status Onset Pneumonia Acute Pleural effusion Acute
[2017-01-23] MEDS: SODIUM CHLORIDE 1,000 MG TAB PO SCH ×3 (09:54→17:44)
[2017-01-23] MEDS: ENOXAPARIN 40 MG/0.4 ML SYR SC SCH (09:54)
--- NOTE | 2017-01-23 10:08 | HOSPPROG ---
Hospitalist Progress Note Assessment/Plan: DIAGNOSES: # FAILURE TO THRIVE -multifactorial cause -hard to tell how much each issue is contributing to this picture or how well she will recover as we treat individual problems, suspect UTI may be major cause; her daughter is still quite optimistic that she will improve back to a recent baseline of being very independent and mobile # Hyponatremia - likely a mix of poor intake and SIADH from her cancer -is volume repleat -on 1200 cc fluid restriction and oral salt supplements # Pleural effusions, malignant - s/p prior thoracentesis elsewhere - oxygen saturations 97% on 2L - cytology from repeat thoracentesis pending here -pleurex cath placed 01/22 # UTI, compicated, with ESBL E coli (would consider [facility] as she was recenly at another hospital before this admission) on cefoxitin for ESBL e coli day one 01/22 # Suspected Pancreatic CA - with metastasis based on outside imaging (pleural, liver, lung, abdominal) # proph - lovenox # diet - regular w fluid restriction PLANS: - continue SIADH fluid restriction/salt tabs, follow sodium closely - antibiotic changed to cefoxitin for ESBL ecoli as of 01/22, count 01/22 as day one of abx - family meeting re goals of care today -physical occupational therapy -routine management of PleurX catheter and pleural effusion SUBJECTIVE: Seen with the patient's daughter as unpaid intern who is very fluent in both the patient is negative Faroese and Carlito. Slightly stronger today, and per the patient's daughter she has looked better and is eating more easily today Discomfort, no chills or sweats, no nausea Had a bowel movement this morning OBJECTIVE Vitals reviewed: Remains with some mild tachycardia perhaps slightly better today, no fever Exam: alert oriented Appears a bit more energetic today skin warm dry color ok resps not labored lungs clear BSs bilateral at upper lung shoemaker, still with some decreased breath sounds at the right base, no rales heart regular abd soft nondistended nontender, bowel sounds present limbs warm, no edema iv site ok Laboratory data: Sodium unchanged at 125 this morning Renal function stable Objective: Vital Signs Temp Pulse Resp BP Pulse Ox 36.6 C 103 H 18 103/65 92 01/23/17 08:55 01/23/17 08:55 01/23/17 08:55 01/23/17 08:55 01/23/17 08:55 Microbiology 01/20/17 17:30 Gram Stain - Final Pleural Fluid - Aspirate 01/20/17 15:35 Urine Culture - Final Urine,Clean Catch Escherichia Coli Esbl Laboratory Results 01/21/17 06:00 01/23/17 04:30 01/22/17 01/23/17 01/24/17 06:59 06:59 06:59 Intake Total 1752 522 Output Total 525 1150 Balance 1227 -628 PT 14.3 SEC (12.0-15.0) 01/20/17 13:44 INR 1.12 (0.83-1.16) 01/20/17 13:44 - Time Spent With Patient Time Spent with Patient: greater than 35 minutes Time Spent with Patient: Greater than 35 minutes spent on this patients care, greater than 50% of time spent counseling, educating, and coordinating care regarding the above mentioned plan. ICD10 Worksheet Patient Problems: Problems Problem Status Onset Pleural effusion Acute Pneumonia Acute
--- NOTE | 2017-01-23 16:29 | ASMTCMCOM ---
CM Note CM Note Notes: 01/23/2017 Case Management Note Met w/pt and daughter Nadeen. Nadeen expresses desire for [place] to transfer to [place] via medical transport. Informed Nadeen that research will happen on Wednesday into possiblity of flight and costs. Explained to Nadeen that it may not be covered by insurance. Nadeen plans to take care of her mother certified orthotist once she arrives in [place]. Micky reports they have limited funds and can not afford to pay the cost of private medical flight transport. josselyn has a plane ticket to return to [place] on the . If pt stays in [place] she will live with daughter Amador and her son in law Himanshu, who live in [facility]. Family is set with [facility] for RN PT and OT. Nadeen reports that family won't be able to pay for 05/10 childbirth and infant care teacher and requested case management start HCBS application with Medicaid. Expressed to Nadeen that process takes time. Case Management to start HCBS process on Wednesday. Nadeen assured case management that family members would be availble to care for pt at d/c. Nadeen does not want Hospice. She believes that "the light of God" is in her Mom and that "God has greater plans for her". Nadeen's is a goods layer at a [place] in [place]. She does not feel that their former yazidi members would be able to assist with her Mom's cares if pt has to stay in [place]. Case Management to follow. Date Signed: 01/23/2017 04:28 PM Electronically Signed By:Elina Chou RN
[2017-01-24] MEDS: cefOXitin SODIUM 1 GM in D5W 50 ML IV SCH ×3 (04:57→18:10)
[2017-01-24 05:32] LABS: ADD DIFF? YES; ADD MORPH? NO; ADD SCAN? NO; ATYPICAL LYMPHOCYTE FLAG 0 (0-99); FRAGMENT RBC FLAG 0 (0-99); HEMATOCRIT 32.6 % (38.0-47.0); HEMOGLOBIN 11.4 g/dL (12.6-16.3); LEFT SHIFT FLG 30 (0-99); LIPEMIA HEMOLYSIS FLAG 90 (0-99); MEAN CELL HEMOGLOBIN 29.6 pg (27.9-34.1); MEAN CELL VOLUME 84.7 fL (81.5-99.8); MEAN PLATELET VOLUME 8.2 fL (8.7-11.7); PLATELET CLUMPS FLAG 10 (0-99); PLATELET COUNT 151 10^3/uL (150-400); RED BLOOD CELL COUNT 3.85 10^6/uL (4.18-5.33); RED CELL DISTRIBUTION WIDTH 14.1 % (11.5-15.2)
[2017-01-24 05:43] LABS: ALBUMIN 2.4 g/dL (3.5-5.0); ANION GAP 7 mEq/L (8-16); CALCIUM 8.1 mg/dL (8.5-10.4); CARBON DIOXIDE 27 mEq/l (22-31); CHLORIDE 96 mEq/L (97-110); CREATININE 0.4 mg/dL (0.6-1.0); GLOMERULAR FILTRATION RATE > 60; GLUCOSE 126 mg/dL (70-100); POTASSIUM 3.8 mEq/L (3.5-5.2); SODIUM 130 mEq/L (134-144)
[2017-01-24 06:08] LABS: ACANTHOCYTES 1+; PLATELET ESTIMATE ADEQUATE (ADEQ); POLYCHROMASIA 1+
--- NOTE | 2017-01-24 07:03 | SOAPPROG ---
XOCHITL Progress Note Assessment/Plan: Assessment: 1. Metastatic pancreatic cancer: the cytology from [facility] is still pending today. Overall plan is hospice. I asked the nurse to have the SW or digital media planner work with the family and the patient. I explained to Amador that the prognosis is probably weeks to months and that her strength will not improve dramatically. 2. E. Coli UTI: cefoxitin 3. Pleural effusion 2ndary to #1: Tap prn Plan: hospice 01/23/17 08:27 01/24/17 07:02 01/24/17 08:25 Subjective: This is a 86 yo Madarin speaking female with metastatic pancreatic cancer to liver, lung, and pleura. She has a UTI. The plan is to review final path and obtain hospice care. Objective: Vital Signs Temp Pulse Resp BP Pulse Ox 36.8 C 102 H 18 103/66 92 01/24/17 04:57 01/24/17 04:57 01/24/17 04:57 01/24/17 04:57 01/24/17 04:57 Microbiology 01/20/17 17:30 Gram Stain - Final Pleural Fluid - Aspirate Laboratory Results 01/24/17 05:10 01/24/17 05:10 01/23/17 01/24/17 01/25/17 05:59 05:59 05:59 Intake Total 522 825 Output Total 1150 420 Balance -628 405 PT 14.3 SEC (12.0-15.0) 01/20/17 13:44 INR 1.12 (0.83-1.16) 01/20/17 13:44 ICD10 Worksheet Patient Problems: Problems Problem Status Onset Pneumonia Acute Pleural effusion Acute
--- NOTE | 2017-01-24 07:42 | SOAPPROG ---
SOAP Progress Note Assessment/Plan: Assessment:Plan: Hyponatremia-Na 130 -urine studies now show hypovolemic hyponatremia transformed to euvolemic hyponatremia after adequate IVF -current hyponatremia consistent with ADH-mediated process -given that the care plan is for hospice due to her pancreatic cancer, I will sign off -no further labs needed from the renal perspective 01/24/17 07:40 Objective: Vital Signs Temp Pulse Resp BP Pulse Ox 36.8 C 102 H 18 103/66 92 01/24/17 04:57 01/24/17 04:57 01/24/17 04:57 01/24/17 04:57 01/24/17 04:57 Microbiology 01/20/17 17:30 Gram Stain - Final Pleural Fluid - Aspirate Laboratory Results 01/24/17 05:10 01/24/17 05:10 01/23/17 01/24/17 01/25/17 05:59 05:59 05:59 Intake Total 522 825 Output Total 1150 420 Balance -628 405 PT 14.3 SEC (12.0-15.0) 01/20/17 13:44 INR 1.12 (0.83-1.16) 01/20/17 13:44 ICD10 Worksheet Patient Problems: Problems Problem Status Onset Pleural effusion Acute Pneumonia Acute
[2017-01-24] MEDS: SODIUM CHLORIDE 1,000 MG TAB PO SCH ×3 (09:47→18:10)
[2017-01-24] MEDS: ENOXAPARIN 40 MG/0.4 ML SYR SC SCH (09:48)
--- NOTE | 2017-01-24 15:21 | ASMTCMCOM ---
CM Note CM Note Notes: Spoke with daughter, Nadeen who is patient's MPOA. Nadeen has decided that it would be best for her mother to go to a SNF than to return home. Nadeen is not interested in Hospice at this time, wants her mother to receive the needed abx and rehab. Patient needs 24hr care, the daughter who she lives with works and Nadeen will be returning to [place] soon. Daughter lives in [place]. Gave Nadeen Medicare.[facility] to select appropriate SNF's and made referrals. Also completed a ULTC-100 and faxed to [facility]. ULTC-100 in chart as is the MPOA. Date Signed: 01/24/2017 03:20 PM Electronically Signed By:Cathy Mejia LCSW
--- NOTE | 2017-01-24 17:22 | HOSPPROG ---
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 -is volume repleat and now with much better sodium -on 1200 cc fluid restriction and oral salt supplements # Pleural effusions, malignant - s/p prior thoracentesis elsewhere - oxygen saturations 97% on 2L -cytology from repeat thoracentesis pending here, but prior cytology elsewhere showed carcinoma consistent with her suspected pancreatic CA -pleurex cath placed 01/22 # UTI, complicated, with ESBL E coli (would consider [facility] as she was recenly at another hospital before this admission) on cefoxitin for ESBL e coli day one of abx 01/22 # Suspected Pancreatic CA - with metastasis based on outside imaging (pleural, liver, lung, abdominal) # proph - lovenox # diet - regular w fluid restriction PLANS: - continue SIADH fluid restriction/salt tabs, follow sodium closely - antibiotic changed to cefoxitin for ESBL ecoli as of 01/22, count 01/22 as day one of abx -physical occupational therapy -routine management of PleurX catheter and pleural effusion - case management is looking at [facility] at jail facility as the patient and family hoping to do some rehabilitation at this time; they do not want to do hospice care; They do understand that she has a cancer and there is no specific treatment that would be useful for that and her case SUBJECTIVE: Seen with the patient's daughter as undercutter operator who is very fluent in both the patient is negative Solomon Islander and Carlito. Notably more alert to eating more interacting more Discomfort, no chills or sweats, no nausea OBJECTIVE Vitals reviewed: Remains with some mild tachycardia perhaps slightly better today, no fever Exam: More interactive, eating better, looks a bit stronger overall though generally weak still skin warm dry color ok resps not labored lungs clear BSs bilateral no rales heart regular abd soft nondistended nontender, bowel sounds present limbs warm, no edema iv site ok Laboratory data: Sodium better at 130 Objective: Vital Signs Temp Pulse Resp BP Pulse Ox 36.4 C 93 17 107/65 93 01/24/17 08:00 01/24/17 08:00 01/24/17 08:00 01/24/17 08:00 01/24/17 08:00 Microbiology 01/20/17 17:30 Gram Stain - Final Pleural Fluid - Aspirate Laboratory Results 01/24/17 05:10 01/24/17 05:10 01/23/17 01/24/17 01/25/17 06:59 06:59 06:59 Intake Total 522 825 Output Total 8004 171 4624 Balance -628 405 -1001 PT 14.3 SEC (12.0-15.0) 01/20/17 13:44 INR 1.12 (0.83-1.16) 01/20/17 13:44 ICD10 Worksheet Patient Problems: Problems Problem Status Onset Pleural effusion Acute Respiratory compromise Acute
[2017-01-25] MEDS: cefOXitin SODIUM 1 GM in D5W 50 ML IV SCH ×5 (00:29→23:55)
[2017-01-25 04:32] LABS: ADD DIFF? YES; ADD MORPH? NO; ADD SCAN? NO; ATYPICAL LYMPHOCYTE FLAG 0 (0-99); FRAGMENT RBC FLAG 0 (0-99); HEMOGLOBIN 10.7 g/dL (12.6-16.3); LEFT SHIFT FLG 30 (0-99); LIPEMIA HEMOLYSIS FLAG 90 (0-99); MEAN CELL HEMOGLOBIN 29.2 pg (27.9-34.1); MEAN CELL HEMOGLOBIN CONCENTR. 34.5 g/dL (32.4-36.7); MEAN CELL VOLUME 84.7 fL (81.5-99.8); MEAN PLATELET VOLUME 8.3 fL (8.7-11.7); PLATELET CLUMPS FLAG 20 (0-99); PLATELET COUNT 130 10^3/uL (150-400); RED BLOOD CELL COUNT 3.66 10^6/uL (4.18-5.33); RED CELL DISTRIBUTION WIDTH 14.3 % (11.5-15.2)
[2017-01-25 04:47] LABS: ALBUMIN 2.1 g/dL (3.5-5.0); ANION GAP -1 mEq/L (8-16); CALCIUM 7.7 mg/dL (8.5-10.4); CARBON DIOXIDE 29 mEq/l (22-31); CHLORIDE 96 mEq/L (97-110); CREATININE 0.4 mg/dL (0.6-1.0); GLOMERULAR FILTRATION RATE > 60; GLUCOSE 117 mg/dL (70-100); POTASSIUM 4.3 mEq/L (3.5-5.2); SODIUM 124 mEq/L (134-144)
[2017-01-25 05:05] LABS: PLATELET ESTIMATE DECREASED (ADEQ); POLYCHROMASIA 1+
[2017-01-25] MEDS: ENOXAPARIN 40 MG/0.4 ML SYR SC SCH (08:39)
[2017-01-25] MEDS: SODIUM CHLORIDE 1,000 MG TAB PO SCH ×3 (08:39→18:17)
--- NOTE | 2017-01-25 11:01 | HOSPPROG ---
Hospitalist Progress Note Assessment/Plan: Patient is an 86-year-old Mandarin speaking female who was admitted for shortness of breath, right pleural effusion and a pancreatic mass. She was recently diagnosed with a pancreatic mass at [facility] on December 2016. Today is my 1st encounter with the patient. Chart reviewed. Dr Padilla and I met with the patient and the daughter. * suspected metastatic pancreatic cancer Reviewed her care with palliative care team, the daughter does not think that she has cancer Her pathology report from [facility] is + for adenocarcinoma daughter is awaiting pathology from here * right-sided pleural effusion Cytology from thoracentesis is pending here. Prior cytology shows carcinoma concert consistent with her suspected pancreatic cancer Pleura X catheter in place * complicated urinary tract infection, ESBL On cefoxitin 01/22 * hyponatremia Secondary from SIADH Daughter does not want her mom to take salt tabs Patient on a fluid restriction started on demeclocycline * failure to thrive Due to the above *Plan: awaiting pathology, recheck chemistry in a.m., reviewed with the daughter , Nadeen, she may not qualify for rehab. Will wait for pathology. Subjective: Patient speaks Mandarin, smiles. Objective: Vital Signs Temp Pulse Resp BP Pulse Ox 36.1 C 98 15 96/62 L 95 01/25/17 08:40 01/25/17 08:40 01/25/17 08:40 01/25/17 08:40 01/25/17 08:40 Laboratory Results 01/25/17 03:55 01/25/17 03:55 01/24/17 01/25/17 01/26/17 05:59 05:59 05:59 Intake Total 825 595 Output Total 420 1001 Balance 405 -406 PT 14.3 SEC (12.0-15.0) 01/20/17 13:44 INR 1.12 (0.83-1.16) 01/20/17 13:44 - Physical Exam Constitutional: no apparent distress, appears nourished, not in pain Eyes: PERRL Ears, Nose, Mouth, Throat: hearing normal Cardiovascular: regular rate and rhythym Respiratory: no respiratory distress, reduced air movement (right base) Gastrointestinal: normoactive bowel sounds Skin: warm Neurologic: other (alert and interactive) Psychiatric: interacting appropriately ICD10 Worksheet Patient Problems: Problems Problem Status Onset Pleural effusion Acute Respiratory compromise Acute
--- NOTE | 2017-01-25 12:39 | SOAPPROG ---
SOVANESSA Progress Note Assessment/Plan: Assessment: 1. Metastatic pancreatic cancer: the cytology from [facility] is still pending today. Path from [facility] was positive for adenocarcinoma. Daughter is looking for confirmation from cytology here that is pending. They are interested in rehab. This may or may not be appropriate pending physical therapy evaluation. 2. E. Coli UTI: cefoxitin 3. Pleural effusion 2ndary to #1: Tap prn 4. Hyponatremia - Na 124 - probably an element of SIADH due to CA and disease in lungs. Will add demeclocycline Plan: Check cytology Add demeclocycline Most appropriate disposition is pending. Physical therapy 25 min floor time Subjective: Walked in campos today Objective: Vital Signs Temp Pulse Resp BP Pulse Ox 36.1 C 98 15 96/62 L 95 01/25/17 08:40 01/25/17 08:40 01/25/17 08:40 01/25/17 08:40 01/25/17 08:40 Laboratory Results 01/25/17 03:55 01/25/17 03:55 01/23/17 01/24/17 01/25/17 23:59 23:59 23:59 Intake Total 1197 290 455 Output Total 270 1201 Balance 927 -911 455 PT 14.3 SEC (12.0-15.0) 01/20/17 13:44 INR 1.12 (0.83-1.16) 01/20/17 13:44 Physical Exam - Physical Exam Neuro/Psych: alert ICD10 Worksheet Patient Problems: Problems Problem Status Onset Pleural effusion Acute Respiratory compromise Acute
[2017-01-25] MEDS: DEMECLOCYCLINE HCL 300 MG TAB PO SCH ×2 (14:46→20:21)
[2017-01-26 04:57] LABS: ALBUMIN 2.3 g/dL (3.5-5.0); ANION GAP 7 mEq/L (8-16); CALCIUM 7.9 mg/dL (8.5-10.4); CARBON DIOXIDE 26 mEq/l (22-31); CHLORIDE 97 mEq/L (97-110); CREATININE 0.4 mg/dL (0.6-1.0); GLOMERULAR FILTRATION RATE > 60; GLUCOSE 116 mg/dL (70-100); POTASSIUM 4.5 mEq/L (3.5-5.2); SODIUM 130 mEq/L (134-144)
[2017-01-26] MEDS: cefOXitin SODIUM 1 GM in D5W 50 ML IV SCH ×4 (05:32→23:22)
[2017-01-26] MEDS: ENOXAPARIN 40 MG/0.4 ML SYR SC SCH (08:25)
[2017-01-26] MEDS: SODIUM CHLORIDE 1,000 MG TAB PO SCH ×3 (08:26→18:38)
[2017-01-26] MEDS: DEMECLOCYCLINE HCL 300 MG TAB PO SCH ×2 (08:26→20:08)
--- NOTE | 2017-01-26 10:12 | HOSPPROG ---
Hospitalist Progress Note Assessment/Plan: Patient is an 86-year-old Mandarin speaking female who was admitted for shortness of breath, right pleural effusion and a pancreatic mass. She was recently diagnosed with a pancreatic mass at [facility] on December 2016. * metastatic pancreatic cancer Results of pleural fluid is + for metastatic adenocarcinoma consistent w pancreatic cancer Her pathology report from [facility] is + for adenocarcinoma I updated the patient's son via a translater who speaks Mandarin/ he doesn't want to tell his mom at this points * right-sided pleural effusion Pleura X catheter in place * complicated urinary tract infection, ESBL On cefoxitin 01/22 * hyponatremia Secondary from SIADH improved with demeclocycline * failure to thrive Due to the above *Plan: updated son about pathology report. He defers to comment if he is MPOA. He doesn't want to tell his mom about the pathology results at this time. He says his mom is not in pain. Palliative Care meeting with the patient and family members at this time. Subjective: Osvaldo says via her son she is not in pain. Objective: Vital Signs Temp Pulse Resp BP Pulse Ox 36.6 C 100 16 107/69 99 01/26/17 08:00 01/26/17 08:00 01/26/17 08:00 01/26/17 08:00 01/26/17 08:00 Microbiology 01/20/17 17:30 Gram Stain - Final Pleural Fluid - Aspirate Laboratory Results 01/25/17 03:55 01/26/17 04:14 01/25/17 01/26/17 01/27/17 05:59 05:59 05:59 Intake Total 595 900 Output Total 1001 Balance -406 900 PT 14.3 SEC (12.0-15.0) 01/20/17 13:44 INR 1.12 (0.83-1.16) 01/20/17 13:44 - Physical Exam Constitutional: chronically ill appearing Eyes: PERRL Ears, Nose, Mouth, Throat: hearing normal Cardiovascular: regular rate and rhythym Respiratory: no respiratory distress, reduced air movement (right base and middle lobe, decreased on left base) Skin: warm Musculoskeletal: generalized weakness Neurologic: other (alert) Psychiatric: interacting appropriately ICD10 Worksheet Patient Problems: Problems Problem Status Onset Extended spectrum beta lactamase (ESBL) resistance Acute ~01/22/17 Pleural effusion Acute Respiratory compromise Acute
--- NOTE | 2017-01-26 12:55 | SOAPPROG ---
SOAP Progress Note Assessment/Plan: Assessment: 1. Metastatic pancreatic cancer: the cytology from [facility] is positive for adenoca consistent with pancreatic primary. Path from [facility] was positive for adenocarcinoma also. Daughter, Nadeen, understands her mother has cancer that is not treatable for cure. She is still holding on to hope that her mother will get stronger at least for a time. If rehab is not an option, then D/C to home with home care is their preference. 2. E. Coli UTI: cefoxitin 3. Pleural effusion 2ndary to #1: Tap prn 4. Hyponatremia - Na 130 - probably better due to demeclocycline Plan: D/C planning Continue demeclocycline Most appropriate disposition is pending. Subjective: Patient is on the bedside commode looking down. Daughter Nadeen is the communicator. Objective: Vital Signs Temp Pulse Resp BP Pulse Ox 36.6 C 100 16 107/69 99 01/26/17 08:00 01/26/17 08:00 01/26/17 08:00 01/26/17 08:00 01/26/17 08:00 Microbiology 01/20/17 17:30 Gram Stain - Final Pleural Fluid - Aspirate 01/20/17 17:30 Mycobacterial Smear (VANESA) - Final Pleural Fluid - Aspirate Laboratory Results 01/25/17 03:55 01/26/17 04:14 01/24/17 01/25/17 01/26/17 23:59 23:59 23:59 Intake Total 290 1255 100 Output Total 1201 Balance -911 1255 100 PT 14.3 SEC (12.0-15.0) 01/20/17 13:44 INR 1.12 (0.83-1.16) 01/20/17 13:44 Physical Exam - Physical Exam General Appearance: mild distress ICD10 Worksheet Patient Problems: Problems Problem Status Onset Extended spectrum beta lactamase (ESBL) resistance Acute ~01/22/17 Pleural effusion Acute Respiratory compromise Acute
[2017-01-26] MEDS ORDERED: LIDOCAINE 5% 1 EA PATCH TD SCH (15:15)
--- NOTE | 2017-01-26 19:36 | PDPCPN ---
Palliative Care Progress Note Assessment/Plan: Referring provider: Dr Mensah Reason for consult: Complex medical decision making Symptom control HPI: Osvaldo Rodgers is a 86 yo female with PMH metastatic pancreatic cancer recently dx 12/2016 admitted to the hospital for SOB. Found to have UTI with ESBL being treated with antibiotics as well as hyponatremia now almost fully corrected. Also on admission with recurrent pleural effusion s/p drain placement. Well known to me from previous outpatient encounter. The family has been resistant to accepting her dx of met pancreatic cancer with very poor prognosis. She was actually discharged from [facility] with [facility] hospice but family revoked because they do not feel she is dying and wanted the benefit of rehab through [facility]. Palliative care consulted for [facility] medical decision making. Met with patient, 2 daughters, 1 son, and son in law at the bedside with the help of telephone video game designer. Spent a long time discussing the medical status as well as plan for discharge. The family has accepted that Osvaldo has cancer but do not believe she will from this and believe she is improving. Osvaldo through the video game designer states that she does not believe she has cancer and her family confirms this is what she has been telling them. we did discuss that the final results unfortunately does show she has cancer and has a prognosis of a few weeks. Discussed that current measures of controlling her medical issues are temporary as they are being caused by her cancer which is not curable. Osvaldo with the help of her daughter Nadeen stated Nadeen is her MDPOA. We discussed that unfortunately Osvaldo has not been accepted by multiple rehab centers and therefore options are more limited. The family stated they are able to care for her as they believe she is getting better and just need help with rehab to continue to improve the strength of their mother. Discussed options including paying privately for rehab, LTC, home with [facility] or hospice care. The family would like to try another rehab facility but if she is not accepted they agree to take her home with [facility]. They do not feel hospice care is appropriate at this time. Total time spent in direct face to face with patient, video game designer, and multiple family members conversation about goals of care and discharge planning 106 minutes from 10:04-11:50. Assessment: Physical: - Pain: occasional right chest pain - tylenoL PRN - Dyspnea: - oxygen as needed - at home has roxanol 5mg PO Q2hr PRN - constipation - senna and colace PRN Emotional/psychological: has a lot of support from family and friends. Advanced Care Planning: Is patient decisional?: yes Code Status: DNR POGadiel: Nadeen is MDPOA Plan: First choice is rehab but if not accepted then home with [facility]. Family is not ready for hospice care. 01/27/17 14:11 Subjective: i'm doing ok Objective: Social History: . Has 3 children all involved. Likes to garden and be outside. Medication list reviewed ROS: General: fatigue, weakness, weight loss ENT: negative Resp: dyspnea GI: poor appetite : negative MS: negative Skin: engative Neuro: negative Psych: negative Functional assessment: PPS: 40% Functional status: dependent on ADLs, IADLs Vital Signs Temp Pulse Resp BP Pulse Ox 36.7 C 97 16 104/68 98 01/26/17 15:58 01/26/17 15:58 01/26/17 15:58 01/26/17 15:58 01/26/17 15:58 Microbiology 01/20/17 17:30 Gram Stain - Final Pleural Fluid - Aspirate 01/20/17 17:30 Mycobacterial Smear (VANESA) - Final Pleural Fluid - Aspirate Laboratory Results 01/25/17 03:55 01/26/17 04:14 01/25/17 01/26/17 01/27/17 05:59 05:59 05:59 Intake Total 595 900 800 Output Total 1001 Balance -406 900 800 PT 14.3 SEC (12.0-15.0) 01/20/17 13:44 INR 1.12 (0.83-1.16) 01/20/17 13:44 Physical Exam - Physical Exam General Appearance: alert, no apparent distress Respiratory: No respiratory distress, No accessory muscle use Skin: normal color, warm/dry Extremities: pedal edema Neuro/Psych: alert, oriented x 3 ICD10 Worksheet Patient Problems: Problems Problem Status Onset Extended spectrum beta lactamase (ESBL) resistance Acute ~01/22/17 Palliative care encounter Acute Pleural effusion Acute Respiratory compromise Acute - ICD10 Problem Qualifiers (1) Palliative care encounter
[2017-01-26] MEDS ORDERED: PATCH REMOVAL 1 EA PATCH TD SCH (21:00)
[2017-01-27] MEDS: cefOXitin SODIUM 1 GM in D5W 50 ML IV SCH ×3 (05:02→18:04)
[2017-01-27 05:43] LABS: ALBUMIN 2.3 g/dL (3.5-5.0); ANION GAP 6 mEq/L (8-16); CALCIUM 8.1 mg/dL (8.5-10.4); CARBON DIOXIDE 29 mEq/l (22-31); CHLORIDE 97 mEq/L (97-110); CREATININE 0.4 mg/dL (0.6-1.0); GLOMERULAR FILTRATION RATE > 60; GLUCOSE 114 mg/dL (70-100); POTASSIUM 4.4 mEq/L (3.5-5.2); SODIUM 132 mEq/L (134-144)
[2017-01-27] MEDS: ENOXAPARIN 40 MG/0.4 ML SYR SC SCH (10:22)
[2017-01-27] MEDS: DEMECLOCYCLINE HCL 300 MG TAB PO SCH (10:22)
[2017-01-27] MEDS: SODIUM CHLORIDE 1,000 MG TAB PO SCH ×3 (10:23→18:04)
--- NOTE | 2017-01-27 11:25 | HOSPPROG ---
Hospitalist Progress Note Assessment/Plan: Patient is an 86-year-old Mandarin speaking female who was admitted for shortness of breath, right pleural effusion and a pancreatic mass. She was recently diagnosed with a pancreatic mass at [facility] on December 2016. * metastatic pancreatic cancer Results of pleural fluid is + for metastatic adenocarcinoma consistent w pancreatic cancer Her pathology report from [facility] is + for adenocarcinoma * right-sided pleural effusion Pleura X catheter in place * complicated urinary tract infection, ESBL On cefoxitin 01/22 will cont oral abx on dc * hyponatremia Secondary from SIADH improved with demeclocycline/will dc for now cont fluid restriction * failure to thrive Due to the above requiring 3 person assist to get oob. *Plan: spent >30 minutes via the Mandarin delivery aide discussing discharge. The family says they can't care for her today/ yesterday the daughter said they could. They have a hospital bed at home. Nursing staff to have the family care for her today and see how she does/ she doesn't qualify for a SNF/CM also looking at equipment operator intermodal yard placement/ ULTC is pending. Family doesn't want hospice/ says she is stronger daily. If she goes home, will order home care. They have requested a nurse OTC, but explained they would have to pay, they do not have the money to do this. Difficult situation. Subjective: Per delivery aide, patient is not in pain. Objective: Vital Signs Temp Pulse Resp BP Pulse Ox 36.5 C 95 17 101/63 92 01/27/17 09:09 01/27/17 09:09 01/27/17 09:09 01/27/17 09:09 01/27/17 09:09 Microbiology 01/20/17 17:30 Gram Stain - Final Pleural Fluid - Aspirate 01/20/17 17:30 Mycobacterial Smear (VANESA) - Final Pleural Fluid - Aspirate Laboratory Results 01/25/17 03:55 01/27/17 04:58 01/26/17 01/27/17 01/28/17 05:59 05:59 05:59 Intake Total 900 900 Balance 900 900 PT 14.3 SEC (12.0-15.0) 01/20/17 13:44 INR 1.12 (0.83-1.16) 01/20/17 13:44 - Physical Exam Constitutional: not in pain, chronically ill appearing Eyes: PERRL Ears, Nose, Mouth, Throat: hearing normal Cardiovascular: regular rate and rhythym Respiratory: no respiratory distress (decreased at right base) Gastrointestinal: normoactive bowel sounds Skin: warm Musculoskeletal: generalized weakness Neurologic: other (alert) Psychiatric: interacting appropriately ICD10 Worksheet Patient Problems: Problems Problem Status Onset Extended spectrum beta lactamase (ESBL) resistance Acute ~01/22/17 Palliative care encounter Acute Pleural effusion Acute Respiratory compromise Acute
--- NOTE | 2017-01-27 15:26 | ASMTCMCOM ---
CM Note CM Note Notes: Reviewed chart and discussed case with Hospitalist, palliative MULTI SHARE PROGRAM COORDINATOR, and RN. CM still trying to find placement for pt in care facility. We have heard back from 5 facilities which have declined to accept pt. Per MD and palliative MULTI SHARE PROGRAM COORDINATOR family is not interested in Hospice at this point. I met w/family (pt's children) along with phone fashion consultant selling; we discussed options of SNF vs home with additional care. Pt's children state that they would prefer if their mother went to SNF as they feel it would be very difficult to care for pt at home and they are not able to afford private duty care. Pt is currently total care and requires 3 person for transfers. We are still waiting to hear back from [facility]; spoke w/Criselda from [place] today and they are still reviewing and will get back to us. Francesca from [facility] was here today to evaluate for LT M'Caid. I asked family if there were a couple other facilites they want us to look into; they did not know of any and asked that we do that for them and said that if it was somewhat near [place] that would be ok. Hopefully will hear back from [facility] today. KAREN w/f. Date Signed: 01/27/2017 03:26 PM Electronically Signed By:Jia Mcgee, RN
[2017-01-28] MEDS: cefOXitin SODIUM 1 GM in D5W 50 ML IV SCH ×4 (00:37→18:55)
[2017-01-28] MEDS: SODIUM CHLORIDE 1,000 MG TAB PO SCH ×3 (10:58→18:57)
[2017-01-28] MEDS: ENOXAPARIN 40 MG/0.4 ML SYR SC SCH (10:58)
--- NOTE | 2017-01-28 15:24 | HOSPPROG ---
Hospitalist Progress Note Assessment/Plan: Patient is an 86-year-old Mandarin speaking female who was admitted for shortness of breath, right pleural effusion and a pancreatic mass. She was recently diagnosed with a pancreatic mass at [facility] on December 2016. # metastatic pancreatic cancer -Results of pleural fluid is + for metastatic adenocarcinoma consistent w pancreatic cancer Pathology report from [facility] is + for adenocarcinoma- daily decline noted by therapy and nursing 3 person full assist - cont PT/OT and nursing # right-sided pleural effusion- CXR (personally reviewed and interpreted) large right pleural effusion Pleura X catheter in place- oxygen saturation 95% on RA # complicated urinary tract infection, ESBL- started On cefoxitin 01/22 will cont oral abx on dc # hyponatremia - sodium 132 this am Secondary from SIADH - pt taking little PO - in effect fluid restricting # failure to thrive- cont work on placement Dispo - spent >30 minutes via the DFMSim slate picker discussing status and discharge - clearly explained patient is declining daily and needs placemnt family in agreement with placement - [facility] pending approval I have discussed the case with RN and CM - pt declining daily - needs full assist Subjective: denies pain Objective: Vital Signs Temp Pulse Resp BP Pulse Ox 36.7 C 98 18 118/79 95 01/28/17 08:00 01/28/17 08:00 01/28/17 08:00 01/28/17 08:00 01/28/17 08:00 Microbiology 01/20/17 17:30 Gram Stain - Final Pleural Fluid - Aspirate Anaerobic Culture - Final Laboratory Results 01/25/17 03:55 01/27/17 04:58 01/27/17 01/28/17 01/29/17 05:59 05:59 05:59 Intake Total 900 100 Output Total 500 Balance 900 -400 PT 14.3 SEC (12.0-15.0) 01/20/17 13:44 INR 1.12 (0.83-1.16) 01/20/17 13:44 - Physical Exam Constitutional: no apparent distress Eyes: anicteric sclera Ears, Nose, Mouth, Throat: moist mucous membranes Cardiovascular: regular rate and rhythym Respiratory: no respiratory distress Gastrointestinal: normoactive bowel sounds Genitourinary: no bladder fullness Skin: warm Musculoskeletal: No asymmetric calves Neurologic: other (somnolent) Psychiatric: No agitated Lymph, Heme, Immunologic: no cervical LAD ICD10 Worksheet Patient Problems: Problems Problem Status Onset Extended spectrum beta lactamase (ESBL) resistance Acute ~01/22/17 Palliative care encounter Acute Pleural effusion Acute Respiratory compromise Acute
--- NOTE | 2017-01-28 15:28 | ASMTCMCOM ---
CM Note CM Note Notes: Criselda with [facility] ([phone]) called today with questions about pt. LTC medicaid ananth and needs at DC. They wanted to know when pt's LTC medicaid ananth ananth submitted (01/25) and what level of care pt needs. Criselda will discuss with business office later today. Met with family members including dtr Rosario along with Dr Cabezas and BOBBI Al. Textile Conversion Manager service used. Dr Cao clarified pt's condition for family. They appeared to unbderstand she has cancer and has weeks to live. They understand that if [facility] accepts pt, she may be ready to DC tomorrow. Date Signed: 01/28/2017 03:27 PM Electronically Signed By:Ariadna Rivera LCSW
[2017-01-29] MEDS: cefOXitin SODIUM 1 GM in D5W 50 ML IV SCH ×4 (00:40→18:46)
--- NOTE | 2017-01-29 11:30 | ASMTCMCOM ---
CM Note CM Note Notes: Criselda with [facility] called to state thay cannot take pt with a pleurex drain. Asked Criselda to get more details from DON as to why so staff can help with their concerns. Drain could also be removed and pt brought to hospital weekly for thoracentesis. [facility] sent a referral in case [facility] denies. C/M to follow. Date Signed: 01/29/2017 11:29 AM Electronically Signed By:Ariadna Rivera LCSW
[2017-01-29] MEDS: ENOXAPARIN 40 MG/0.4 ML SYR SC SCH (12:22)
[2017-01-29] MEDS: SODIUM CHLORIDE 1,000 MG TAB PO SCH ×2 (12:23→18:46)
--- NOTE | 2017-01-29 15:19 | HOSPPROG ---
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 -is volume repleat and now with much better sodium -on fluid restriction and oral salt supplements # Pleural effusions, malignant - s/p prior thoracentesis elsewhere, now w pleurex cath placed -pleurex cath placed 01/22 # UTI, complicated, with ESBL E coli -(would consider [facility] as she was recenly at another hospital before this admission) -now s/p 7 days cefoxitin # Suspected Pancreatic CA - with metastasis based on outside imaging (pleural, liver, lung, abdominal) # proph - lovenox # diet - regular w fluid restriction PLANS: - continue SIADH fluid restriction/salt tabs, will recheck Na tomorrow - can stop antibiotic now for UTI -physical occupational therapy -routine management of PleurX catheter and pleural effusion - case management is looking at placement at group home facility, so far having some difficulty finding facility that can accept her SUBJECTIVE: no change in symptoms or disabilities today OBJECTIVE Vitals reviewed: overall less tachycardic, no fever Exam: alert, remains quite weak skin warm dry color ok resps not labored lungs clear BSs bilateral no rales heart regular abd soft nondistended nontender, bowel sounds present limbs warm, no edema iv site ok Objective: Vital Signs Temp Pulse Resp BP Pulse Ox 36.6 C 101 H 19 97/57 L 93 01/29/17 08:42 01/29/17 08:42 01/29/17 08:42 01/29/17 08:42 01/29/17 08:42 Laboratory Results 01/25/17 03:55 01/27/17 04:58 01/28/17 01/29/17 01/30/17 06:59 06:59 06:59 Intake Total 100 100 Output Total 500 150 Balance -400 100 -150 PT 14.3 SEC (12.0-15.0) 01/20/17 13:44 INR 1.12 (0.83-1.16) 01/20/17 13:44 ICD10 Worksheet Patient Problems: Problems Problem Status Onset Extended spectrum beta lactamase (ESBL) resistance Acute ~01/22/17 Palliative care encounter Acute Pleural effusion Acute Respiratory compromise Acute
--- NOTE | 2017-01-29 16:34 | ASMTCMCOM ---
CM Note CM Note Notes: Criselda at [facility] called to state that pt has been declined. Rina from [facility] came to assess pt and determined that due to pt's ESBL, she will need a pvt room which they do not have for at least a week. Kasey from [facility] *[phone]) evaluated pt and determine she qualifies medically for LTC Medicaid. Kasey will need to be called before DC to finish paperwork. Used official court interpreter to update pt's son. C/M to follow. Date Signed: 01/29/2017 04:34 PM Electronically Signed By:Ariadna Rivera LCSW
[2017-01-30] MEDS: cefOXitin SODIUM 1 GM in D5W 50 ML IV SCH ×2 (00:09→06:03)
[2017-01-30] MEDS: ENOXAPARIN 40 MG/0.4 ML SYR SC SCH (08:55)
[2017-01-30] MEDS: SODIUM CHLORIDE 1,000 MG TAB PO SCH ×3 (08:57→17:02)
--- NOTE | 2017-01-30 09:41 | HOSPPROG ---
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 -is volume repleat and now with much better sodium -on fluid restriction and oral salt supplements # Pleural effusions, malignant - s/p prior thoracentesis elsewhere, now w pleurex cath placed -pleurex cath placed 01/22 # UTI, complicated, with ESBL E coli -(would consider [facility] as she was recenly at another hospital before this admission) -now s/p 7 days cefoxitin # diffuse metastatic disease, Suspected Pancreatic CA - (pancreatic mass with pleural, liver, lung, abdominal involvement) # proph - lovenox # diet - regular w fluid restriction This patient would be ideal to go with hospice care at this point the family continues to so far not want to do hospice but continued to trying rehabilitate their mother. Continue to look for a retirement facility where she can get ongoing rehabilitation care. PLANS: - continue SIADH fluid restriction/salt tabs, labs currently pending for sodium today - can stop antibiotic now for UTI - physical occupational therapy - routine management of PleurX catheter and pleural effusion - case management is looking at placement at retirement facility, so far having some difficulty finding facility that can accept her SUBJECTIVE: no change in symptoms or disabilities today OBJECTIVE Vitals reviewed: overall less tachycardic, no fever Exam: alert, remains quite weak Eating well as the daughters spoon feed her food from home skin warm dry color ok resps not labored lungs clear BSs bilateral no rales heart regular abd soft nondistended nontender, bowel sounds present limbs warm, no edema iv site ok Objective: Vital Signs Temp Pulse Resp BP Pulse Ox 36.8 C 95 17 110/63 99 01/30/17 07:32 01/30/17 07:32 01/30/17 07:32 01/30/17 07:32 01/30/17 07:32 Laboratory Results 01/25/17 03:55 01/27/17 04:58 01/29/17 01/30/17 01/31/17 06:59 06:59 06:59 Intake Total 100 458 Output Total 150 Balance 100 308 PT 14.3 SEC (12.0-15.0) 01/20/17 13:44 INR 1.12 (0.83-1.16) 01/20/17 13:44 ICD10 Worksheet Patient Problems: Problems Problem Status Onset Extended spectrum beta lactamase (ESBL) resistance Acute ~01/22/17 Palliative care encounter Acute Pleural effusion Acute Respiratory compromise Acute
[2017-01-30 10:03] LABS: ANION GAP 6 mEq/L (8-16); CALCIUM 7.9 mg/dL (8.5-10.4); CARBON DIOXIDE 28 mEq/l (22-31); CHLORIDE 103 mEq/L (97-110); CREATININE 0.5 mg/dL (0.6-1.0); GLOMERULAR FILTRATION RATE > 60; GLUCOSE 128 mg/dL (70-100); POTASSIUM 3.7 mEq/L (3.5-5.2); SODIUM 137 mEq/L (134-144)
--- NOTE | 2017-01-30 16:49 | ASMTCMCOM ---
CM Note CM Note Notes: Faxed referrals to [facility] bed. Neither have responded yet. Plan continues to be LTC Medicaid bed if facility can be located that will accept pt. Date Signed: 01/30/2017 04:49 PM Electronically Signed By:Ariadna Rivera LCSW
[2017-01-31 03:11] LABS: ANION GAP 4 mEq/L (8-16); CALCIUM 8.2 mg/dL (8.5-10.4); CARBON DIOXIDE 30 mEq/l (22-31); CHLORIDE 104 mEq/L (97-110); CREATININE 0.4 mg/dL (0.6-1.0); GLOMERULAR FILTRATION RATE > 60; GLUCOSE 121 mg/dL (70-100); POTASSIUM 3.9 mEq/L (3.5-5.2); SODIUM 138 mEq/L (134-144)
[2017-01-31] MEDS: SODIUM CHLORIDE 1,000 MG TAB PO SCH ×3 (08:00→17:41)
[2017-01-31] MEDS: ENOXAPARIN 40 MG/0.4 ML SYR SC SCH (08:00)
[2017-01-31] MEDS: morphINE 10 MG/0.5 ML UDSYR PO PRN ×2 (11:46→14:55)
--- NOTE | 2017-01-31 13:30 | HOSPPROG ---
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 -is volume repleat and now with much better sodium -on fluid restriction and oral salt supplements # Pleural effusions, malignant - s/p prior thoracentesis elsewhere, now w pleurex cath placed -pleurex cath placed 01/22, we continued to remove significant volumes of fluid every 1-2 days # UTI, complicated, with ESBL E coli -(would consider [facility] as she was recenly at another hospital before this admission) -now s/p 7 days cefoxitin and appears clinically # diffuse metastatic disease, Suspected Pancreatic primary with carcinoma cells identified on pleural fluid at outside hospital - (pancreatic mass with pleural , liver, lung, abdominal involvement) # proph - lovenox # diet - regular w fluid restriction The patient is not really making any kind of significant more noticeable progress in terms of ability to care for herself, feed herself, mobility, overall strength. Her performance status remains extremely poor. I did review this with her daughter at the bedside today and we discussed that at this point there really are no significant acute or medical issues that are correctable that could lead to improvement in her performance status, and that I really do not have significant hope for her ability to improve much at all. The daughter asked what I thought she had in terms of time left. I discussed that her metastatic cancer will most likely take her life in no more than 3-6 months if nothing else happens. However she remains at very high risk of acute illnesses such as infection, pulmonary embolism, or otherwise, episodes which could take her life suddenly and significantly sooner than that. The daughter understands and agrees. So far the 2 daughters are wishing to continue to avoid hospice care and they are still hoping to make an attempt at any kind of rehabilitation possible. I am not sure that this is at all really realistic. We are attempting to find placement at a [facility] facility for her. This is been difficult for a number of reasons and she has not been accepted at all of the facilities we have been in contact with so far. I think that if she were to go to [facility] facility with the palliative plan are hospice care solidly in place it would be easier for us to find a place for her to go. PLANS: - continue SIADH fluid restriction/salt tabs, labs currently pending for sodium today - can stop antibiotic now for UTI - physical occupational therapy - routine management of PleurX catheter and pleural effusion - case management is looking at placement at [facility] facility, so far having some difficulty finding facility that can accept her - I will continue to work with the family and see if I can get them to transition towards the idea of palliative care at the really do not see any significant possibility for the kind of improvements there looking for with rehabilitation SUBJECTIVE: Today the patient has had some dyspnea without chest pain or cough or fever or phlegm She is eating less today. No nausea or abdominal pain We did give her some Roxanol which has helped to relieve her sense of dyspnea is significantly, though has made her somewhat sleepy Remains quite weak and unable to care for herself OBJECTIVE Vitals reviewed: Stable without fever Exam: Currently awake but slightly groggy, remains quite weak skin warm dry color ok resps not labored lungs diminished but clear BSs bilateral no rales heart regular abd soft nondistended nontender, bowel sounds present limbs warm, no edema iv site ok Objective: Vital Signs Temp Pulse Resp BP Pulse Ox 36.1 C 863 H 15 115/87 H 99 01/31/17 08:40 01/31/17 08:40 01/31/17 08:40 01/31/17 08:40 01/31/17 08:40 Laboratory Results 01/25/17 03:55 01/31/17 02:30 01/30/17 01/31/17 02/01/17 06:59 06:59 06:59 Intake Total 458 Output Total 150 Balance 308 PT 14.3 SEC (12.0-15.0) 01/20/17 13:44 INR 1.12 (0.83-1.16) 01/20/17 13:44 - Time Spent With Patient Time Spent with Patient: greater than 35 minutes Time Spent with Patient: Greater than 35 minutes spent on this patients care, greater than 50% of time spent counseling, educating, and coordinating care regarding the above mentioned plan. ICD10 Worksheet Patient Problems: Problems Problem Status Onset Extended spectrum beta lactamase (ESBL) resistance Acute ~01/22/17 Palliative care encounter Acute Pleural effusion Acute Respiratory compromise Acute
[2017-02-01] MEDS: morphINE 10 MG/0.5 ML UDSYR PO PRN ×2 (06:21→22:24)
[2017-02-01] MEDS: SODIUM CHLORIDE 1,000 MG TAB PO SCH ×3 (10:27→21:25)
[2017-02-01] MEDS: ENOXAPARIN 40 MG/0.4 ML SYR SC SCH (10:27)
--- NOTE | 2017-02-01 11:36 | HOSPPROG ---
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 -is volume repleat and now with much better sodium -on fluid restriction and oral salt supplements # Pleural effusions, malignant - s/p prior thoracentesis elsewhere, now w pleurex cath placed -pleurex cath placed 01/22, we continued to remove significant volumes of fluid every 1-2 days # UTI, complicated, with ESBL E coli -(would consider [facility] as she was recenly at another hospital before this admission) -now s/p 7 days cefoxitin and appears clinically # diffuse metastatic disease, Suspected Pancreatic primary with carcinoma cells identified on pleural fluid at outside hospital - (pancreatic mass with pleural , liver, lung, abdominal involvement) # proph - lovenox # diet - regular w fluid restriction PLANS: - continue SIADH fluid restriction/salt tabs, labs currently pending for sodium today - can stop antibiotic now for UTI - physical occupational therapy - routine management of PleurX catheter and pleural effusion - case management is looking at placement at [facility] facility, so far having some difficulty finding facility that can accept her I reviewed with nurse, case consultant, and Angelina Lira of palliative care team today. She is again making no progress and I do not expect her to make any progress towards any noticeable physical recovery or towards being able to participate in rehabilitation efforts. I have learned today that she has Medicaid and that therefore she does not have a Medicaid inpatient rehab benefit at the [facility] facilities. More over even if the patient goes to high hospice care or palliative care we have a great deal of difficulty finding [facility] facilities that will take Medicaid patients in this area. Will need to continue working with the family on care planning issues. At this point it may be that her only options are to go to a [facility] facility to with palliative care plans including possibly hospice if they are willing to do that and if we can find a facility, or to set up home care or even consider an inpatient hospice. So far they have been entirely unwilling to consider hospice but we can continue to talk with him about that. At this time she is medically stable to leave the hospital as there is really nothing for us to treat other than her severe debility and her assisted needs. SUBJECTIVE: The patient has no pain she is eating, no nausea still quite weak OBJECTIVE Vitals reviewed: Stable without fever 550 ml fluid removed by pleurex cath today from R chest Exam: Currently awake, interacts slowly but normally otherwise; remains extremely weak skin warm dry color ok, no rash or other lesions or pressure sores resps not labored lungs diminished at R base, othewise cleaar no rales heart regular abd soft nondistended nontender, bowel sounds present limbs warm, no edema iv site ok Objective: Vital Signs Temp Pulse Resp BP Pulse Ox 36.4 C 89 18 108/69 98 02/01/17 09:20 02/01/17 09:20 02/01/17 09:20 02/01/17 09:20 02/01/17 09:20 Laboratory Results 01/25/17 03:55 01/31/17 02:30 01/31/17 02/01/17 02/02/17 06:59 06:59 06:59 Intake Total 400 Output Total 550 Balance -150 PT 14.3 SEC (12.0-15.0) 01/20/17 13:44 INR 1.12 (0.83-1.16) 01/20/17 13:44 ICD10 Worksheet Patient Problems: Problems Problem Status Onset Extended spectrum beta lactamase (ESBL) resistance Acute ~01/22/17 Palliative care encounter Acute Pleural effusion Acute Respiratory compromise Acute
--- NOTE | 2017-02-01 12:22 | ASMTCMCOM ---
CM Note CM Note Notes: Isaura, an RN liason from [facility], was here to evaluate patient and speak with family today. After conversation with hospitalist Dr Lea and Palliative Care HEEL BUFFER Nia, we decided that it was not appropriate for Isaura to meet with patient/family, as it still seems that [facility] needs to make a more prescriptive recommendation for this patient's discharge. Furthermore, it is unlikely that patient would meet criteria for admission since she does not yet have [facility] Medicaid (pending), and her regular Medicaid will not cover her admission to a SNF if she dies within 30 days. Also complicating the matter is the Pleurevac drain (will require more care at the SNF) and her ESBL infection (will require a private room, not covered by Medicaid). Based on all of this, the likelihood of her being accepted to [facility] is slim. Dr Lea agrees to take a more definitive stance with the patient's family, and Nia has also agreed that the best plan for patient is to go home with hospice. Hopefully, they will meet with patient's family tomorrow to communicate this. Isaura from [facility] will continue to follow peripherally but will have to meet with family to go over financials if they continue to request that patient go to a facility. Date Signed: 02/01/2017 12:21 PM Electronically Signed By:Catalina Leo RN
[2017-02-02] MEDS: morphINE 10 MG/0.5 ML UDSYR PO PRN ×2 (01:58→03:52)
[2017-02-02] MEDS: MBX SOLN 30 ML BOTTLE PO PRN ×2 (01:58→09:16)
[2017-02-02] MEDS: morphINE 10 MG/0.5 ML UDSYR SL PRN ×3 (05:19→16:56)
[2017-02-02] MEDS: SODIUM CHLORIDE 1,000 MG TAB PO SCH ×3 (08:57→16:56)
[2017-02-02] MEDS: ENOXAPARIN 40 MG/0.4 ML SYR SC SCH (08:57)
--- NOTE | 2017-02-02 14:15 | ASMTCMCOM ---
CM Note CM Note Notes: Dr Lea had a conversation with patient and her daughter, and her daughter seemed amenable to hospice care if patient could be transferred to a care facility. I contacted Jimmy at [facility] who sent RN Kelin to do an evaluation. Palliative Care team was present during eval; traffic maintenance supervisor phone was used. [facility] will accept for hospice and was able to find a SNF that is willing to accept patient. I sent paperwork to that facility, [facility]. Kelin from [facility] will send hospice admission paperwork to patient's VIMAL Senior who lives in [place]. Pending the receipt of those papers, [facility] can send an RN to the SNF to open patient. Dr Lea will write discharge orders, including medications and Polanco catheter placement (at request of facility). [facility] will help arrange transport in the morning. Date Signed: 02/02/2017 02:14 PM Electronically Signed By:Catalina Leo RN
--- NOTE | 2017-02-02 16:34 | HOSPPROG ---
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 -is volume repleat and now with much better sodium -on fluid restriction and oral salt supplements # Pleural effusions, malignant - s/p prior thoracentesis elsewhere, now w pleurex cath placed -pleurex cath placed 01/22, we continued to remove significant volumes of fluid every 1-2 days # UTI, complicated, with ESBL E coli -(would consider [facility] as she was recenly at another hospital before this admission) -now s/p 7 days cefoxitin and appears clinically # diffuse metastatic disease, Suspected Pancreatic primary with carcinoma cells identified on pleural fluid at outside hospital - (pancreatic mass with pleural , liver, lung, abdominal involvement) # proph - lovenox # diet - regular w fluid restriction PLANS: - continue SIADH fluid restriction/salt tabs, labs currently pending for sodium today - can stop antibiotic now for UTI - physical occupational therapy - routine management of PleurX catheter and pleural effusion -the family is now accepting hospice care and she has been accepted into hospice care and sounds like will be able to transfer her to long term facility near her daughter's home tomorrow February 03 SUBJECTIVE: The patient has no pain she is eating, no nausea still quite weak OBJECTIVE Vitals reviewed: Stable without fever 600 ml fluid removed by pleurex cath today from R chest Exam: Currently awake, interacts slowly but normally otherwise; remains extremely weak skin warm dry color ok, no rash or other lesions or pressure sores resps not labored lungs diminished at R base, othewise cleaar no rales heart regular abd soft nondistended nontender, bowel sounds present limbs warm, no edema iv site ok Objective: Vital Signs Temp Pulse Resp BP Pulse Ox 37.1 C 100 14 97/64 L 99 02/02/17 08:00 02/02/17 08:00 02/02/17 08:00 02/02/17 08:00 02/02/17 08:00 Microbiology 01/20/17 17:30 Mycobacterial Smear (VANESA) - Final Pleural Fluid - Aspirate Laboratory Results 01/25/17 03:55 01/31/17 02:30 02/01/17 02/02/17 02/03/17 06:59 06:59 06:59 Intake Total 400 100 Output Total 550 600 Balance -150 -500 PT 14.3 SEC (12.0-15.0) 01/20/17 13:44 INR 1.12 (0.83-1.16) 01/20/17 13:44 ICD10 Worksheet Patient Problems: Problems Problem Status Onset Extended spectrum beta lactamase (ESBL) resistance Acute ~01/22/17 Palliative care encounter Acute Pleural effusion Acute Respiratory compromise Acute
[2017-02-02 16:55] VITALS: RESP 18
[2017-02-03 07:58] VITALS: BP 95/58; PULSE 99; TEMP 99; O2SAT 99
[2017-02-03] MEDS: ENOXAPARIN 40 MG/0.4 ML SYR SC SCH (08:01)
[2017-02-03] MEDS: SODIUM CHLORIDE 1,000 MG TAB PO SCH ×2 (08:01→11:26)
--- NOTE | 2017-02-03 10:46 | PDDCSUM ---
Discharge Summary Discharge Summary: 86 yo female admitted with malignant pleural effusions and FTT. She previously had thoracentesis. She had pleurex cath placed 01/22 and fluid is being removed every 1- 2 days. Hospitalization complicated by acute on chronic hyponatremia and she is on a fluid restriction and salt replacements with improvement. She was treated for a complicated UTI and is off abx at this time She has been accepted to hospice via [facility]. She is stable for discharge to hospice today. She does not have SOB. Denies pain. Eating OK. Son in law is at bedside and providing translation. 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 -is volume repleat and now with much better sodium -on fluid restriction and oral salt supplements # Pleural effusions, malignant - s/p prior thoracentesis elsewhere, now w pleurex cath placed -pleurex cath placed 01/22, we continued to remove significant volumes of fluid every 1-2 days # UTI, complicated, with ESBL E coli -(would consider [facility] as she was recenly at another hospital before this admission) -now s/p 7 days cefoxitin and appears clinically better # diffuse metastatic disease, 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
--- NOTE | 2017-02-03 11:29 | PDIAF ---
- Diagnosis Diagnosis: malignant pleural effussion - Hospice Code Status: Do Not Resuscitate - Medication Management Discharge Medications: Medications to Continue on Transfer Furosemide [Lasix 20 MG (*)] 20 mg PO DAILY PRN 01/20/17 [Last Taken 1 Week Ago ~01/13/17] Herbals/Supplements -Info Only 1 ea PO DAILY 01/20/17 [Last Taken 01/20/17] Ipratropium/Albuterol [Duoneb (*)] 3 ml IH Q6HRS PRN #30 deyvial 02/03/17 [Last Taken Unknown] Ondansetron Odt [Zofran Odt 4 mg (*)] 4 mg PO Q4HRS PRN #30 tab 02/03/17 [Last Taken Unknown] Sodium Chloride [Salt Tablet] 1,000 mg PO TIDMEAL #90 tab 02/03/17 [Last Taken Unknown] morphINE [Roxanol 10 mg/0.5 ml oral soln (*)] 5 - 10 mg SL Q1 PRN #40 udsyr [Last Taken Unknown] Discharge Medications: Refer to the Discharge Home Medication list for PRN reason. - Orders Isolation Type: Contact Isolation Diet Recommendation: no restrictions on diet Diet Texture: Regular Texture Diet - Follow Up Care Current Providers and Referrals: GHAZALA BARNARD [Other]
--- NOTE | 2017-02-03 14:35 | ASDISCHSUM ---
Discharge Information Plan Status:SNF Medically Cleared to Leave: Discharge Date:02/03/2017 02:31 PM CM D/C Disposition:Halfway Facility ADT D/C Disposition:Halfway Facility Projected Discharge Date:02/03/2017 11:00 AM Transportation at D/C:ALS/BLS Discharge Delay Reason: Follow-Up Date:02/03/2017 11:00 AM Discharge Slot: Final Diagnosis:Metastic pancreatic CA Placement Information Referral Type:*Longterm/SNF Referral ID:[id number] Provider Name:[facility] Address 1:[facility] [address] Address 2: City:[place] Selection Factors: State:[place] Referral Type:*Longterm/SNF Referral ID:[id number] Provider Name: Address 1: Phone Number: Address 2: Fax Number: City: Selection Factors: State: Referral Type:*Hospice Referral ID:[id number] Provider Name:Ramses Guaman ([facility]ly [facility] [place]) Address 1:[address] Address 2: City:[place] Selection Factors: State:[place] Patient Contact Information Contact Name:AMANDA Relationship:Daughter Address:[address] [place] [address] City:[place] Alternate Phone: State/Zip Code:[place] [address] Email: Financial Information Financial Class: Primary Plan Desc:MED[place] Primary Plan Number:[id number] Secondary Plan Desc: Secondary Plan Number: Assessment Information [facility] Initial CM Assessment Living Arrangements What is your living Answers: With Child(navdeep) arrangement? Who do you live with? Type Of Residence What kind of residence do Answers: House you live in? Discharge Plan Comments Coordination Status Comments Notes: Met with patient's daughter, Nadeen regarding the family meeting tomorrow at 12:00 as well as how long she will remain in [place] before returning home to [place]. Dr. Hunter, oncologist joined the conversation. He graciously answered all of Nadeen's questions including confirming patient's diagnosis of cancer. Nadeen states the family is not ready for hospice for her mother and she would like to have supportive services set up so her mother can return to her sister's house in [place]. Dr. Hunter discussed a pleural drain for patient to keep the fluid drained off her lungs per Nadeen's requests.Patient already has [facility] with PT,OT,SPL and nursing.Patient has both medicaid and medicare. We will explore any options they have for support services for the family and the patient. Nadeen would like a deposit refund clerk for her mother during the day while her sister is at work. Discussed [facility] but let patient know it may be an out of pocket expense. Will explore options and come up with a final d/c plan tomorrow at the family meeting. CM will follow. Date Signed: 01/21/2017 04:28 PM Electronically Signed By:Irene Stiles LCSW [facility] Progress Note Note CM Note Notes: Family meeting today to review patient's current medical status and decide upon d/c plan. Dr Hunter explained the patient's condition and his recommendations for the patient to all the patient's children with the assist of an miter saw operator. Nadeen who is the daughter that has been most active in her mother's care decided she would like to take her mother home with her to [place]. Dr. Hunter made it clear it would be unsafe to move her mother that far unless it was a medical transport. Nadeen would like assistance with finding out the cost of a medical flight service to [place], [place] and what the cost would be to transport her medical ground transport to [facility]. Nadeen says they do not want to go the hospice route even though the explained what support they could offer and how it was the best option. Dr. Hunter also explained the patient's condition could progress very rapidly and it would be best to be prepared for this possibility. Patient is being transferred to . CM will follow up with the patient and family there. Date Signed: 01/22/2017 04:14 PM Electronically Signed By:Irene Stiles LCSW [facility] Progress Note CM Note CM Note Notes: 01/23/2017 Case Management Note Met w/pt and daughter Nadeen. Nadeen expresses desire for pt to transfer to [place] via medical transport. Informed Nadeen that research will happen on Wednesday into possiblity of flight and costs. Explained to Nadeen that it may not be covered by insurance. Nadeen plans to take care of her mother manager multimedia once she arrives in [place]. Micky reports they have limited funds and can not afford to pay the cost of private medical flight transport. josselyn has a plane ticket to return to [place] on the . If pt stays in [place] she will live with daughter Amador and her son in law Himanshu, who live in [facility]. Family is set with [facility] for RN PT and OT. Nadeen reports that family won't be able to pay for 05/10 clinical care coordinator and requested case management start HCBS application with Medicaid. Expressed to Nadeen that process takes time. Case Management to start HCBS process on Wednesday. Nadeen assured case management that family members would be availble to care for pt at d/c. Nadeen does not want Hospice. She believes that "the light of God" is in her Mom and that "God has greater plans for her". Nadeen's is a marina dry dock manager at a [employer] in [place]. She does not feel that their former [employer]levism members would be able to assist with her Mom's cares if pt has to stay in [place]. Case Management to follow. Date Signed: 01/23/2017 04:28 PM Electronically Signed By:Elina Chou RN [facility] KAREN Progress Note CM Note CM Note Notes: Spoke with daughter, Nadeen who is patient's MPOA. Nadeen has decided that it would be best for her mother to go to a SNF than to return home. Nadeen is not interested in Hospice at this time, wants her mother to receive the needed abx and rehab. Patient needs 24hr care, the daughter who she lives with works and Nadeen will be returning to [place] soon. Daughter lives in [place]. Gave Nadeen Medicare.[facility] to select appropriate SNF's and made referrals. Also completed a ULTC-100 and faxed to [facility]. ULTC-100 in chart as is the MPOA. Date Signed: 01/24/2017 03:20 PM Electronically Signed By:Cathy Mejia LCSW [facility] KAREN Progress Note KAREN [place]wood CM Note Notes: Reviewed chart and discussed case with Hospitalist, palliative COMMUNITY REPRESENTATIVE, and RN. KAREN still trying to find placement for pt in care facility. We have heard back from 5 facilities which have declined to accept pt. Per MD and palliative COMMUNITY REPRESENTATIVE family is not interested in Hospice at this point. I met w/family (pt's children) along with phone miter saw operator; we discussed options of SNF vs home with additional care. Pt's children state that they would prefer if their mother went to SNF as they feel it would be very difficult to care for pt at home and they are not able to afford private duty care. Pt is currently total care and requires 3 person for transfers. We are still waiting to hear back from [facility]; spoke w/Criselda from [facility] today and they are still reviewing and will get back to us. Francesca from [facility] was here today to evaluate for LT M'Caid. I asked family if there were a couple other facilites they want us to look into; they did not know of any and asked that we do that for them and said that if it was somewhat near [facility] that would be ok. Hopefully will hear back from [facility] today. KAREN w/f. Date Signed: 01/27/2017 03:26 PM Electronically Signed By:Jia Mcgee RN [facility] KAREN Progress Note CM Note CM Note Notes: Criselda with [facility] ([phone]) called today with questions about pt. LTC medicaid ananth and needs at [place]. They wanted to know when pt's LT medicaid ananth ananth submitted (01/25) and what level of care pt needs. Criselda will discuss with business office later today. Met with family members including dtalex Ponce along with Dr Cabezas and [facility]. [employer] Head Inspector And Adjuster service used. Dr Cao clarified pt's condition for family. They appeared to unbderstand she has cancer and has weeks to live. They understand that if [facility] accepts pt, she may be ready to [place] tomorrow. Date Signed: 01/28/2017 03:27 PM Electronically Signed By:Ariadna Rivera LCSW [facility] CM Progress Note CM Note CM Note Notes: Criselda with [facility] called to state thay cannot take pt with a pleurex drain. Asked Criselda to get more details from DON as to why so staff can help with their concerns. Drain could also be removed and pt brought to hospital weekly for thoracentesis. [facility] sent a referral in case Abiel yu. C/M to follow. Date Signed: 01/29/2017 11:29 AM Electronically Signed By:Ariadna Rivera LCSW [facility] CM Progress Note CM Note CM Note Notes: Criselda at [facility] called to state that pt has been declined. Rina from [facility] came to assess pt and determined that due to pt's ESBL, she will need a pvt room which they do not have for at least a week. Kasey from [facility] *[phone]) evaluated pt and determine she qualifies medically for LTC Medicaid. Kasey will need to be called before DC to finish paperwork. Used miter saw operator to update pt's son. C/M to follow. Date Signed: 01/29/2017 04:34 PM Electronically Signed By:Ariadna Rivera LCSW [facility] CM Progress Note CM Note CM Note Notes: Faxed referrals to [facility] and [facility] for LTC Medicaid bed. Neither have responded yet. Plan continues to be LTC Medicaid bed if facility can be located that will accept pt. Date Signed: 01/30/2017 04:49 PM Electronically Signed By:Ariadna Rivera LCSW [facility] CM Progress Note CM Note CM Note Notes: Isaura, an RN liason from [facility] SN[facility], was here to evaluate patient and speak with family today. After conversation with hospitalist Dr Lea and Palliative Care COMMUNITY REPRESENTATIVE Nia, we decided that it was not appropriate for Isaura to meet with patient/family, as it still seems that [facility] needs to make a more prescriptive recommendation for this patient's discharge. Furthermore, it is unlikely that patient would meet criteria for admission since she does not yet have skilled nursing care Medicaid (pending), and her regular Medicaid will not cover her admission to a SNF if she dies within 30 days. Also complicating the matter is the Pleurevac drain (will require more care at the SNF) and her ESBL infection (will require a private room, not covered by Medicaid). Based on all of this, the likelihood of her being accepted to [facility] is slim. Dr Lea agrees to take a more definitive stance with the patient's family, and Nia has also agreed that the best plan for patient is to go home with hospice. Hopefully, they will meet with patient's family tomorrow to communicate this. Isaura from [facility] will continue to follow peripherally but will have to meet with family to go over financials if they continue to request that patient go to a facility. Date Signed: 02/01/2017 12:21 PM Electronically Signed By:Catalina Leo RN [facility] Progress Note CM Note CM Note Notes: Dr Lea had a conversation with patient and her daughter, and her daughter seemed amenable to hospice care if patient could be transferred to a care facility. I contacted Jimmy at [facility] who sent RN Kelin to do an evaluation. Palliative Care team was present during eval; miter saw operator phone was used. [facility] will accept for hospice and was able to find a SNF that is willing to accept patient. I sent paperwork to that facility, [facility]. Kelin from [facility] will send hospice admission paperwork to patient's MDPADILENE Senior who lives in [place]. Pending the receipt of those papers, [facility] can send an RN to the SNF to open patient. Dr Lea will write discharge orders, including medications and Polanco catheter placement (at request of facility). [facility] will help arrange transport in the morning. Date Signed: 02/02/2017 02:14 PM Electronically Signed By:Catalina Leo RN Case Management Discharge Plan Note Case Management Discharge Discharge Order Complete? Answers: Yes Patient to Obtain Answers: Other Notes: [facility] Medications Transportation Arranged Answers: Other Notes: [facility] will Pick (Date 02/03/2017 01:45 AM & Time) Case Management Transport Answers: Yes Form Complete Faxed Final Orders Answers: Yes Agency/Facility Transfer Answers: Yes Report Printed & Faxed to Receiving Agency Family Notified Answers: Yes Discharge Comments Notes: [facility] arranged stretcher transport with [facility] for 1:45. [facility] notfified pt's dtr Nadeen who will notify the rest of the family. Date Signed: 02/03/2017 12:27 PM Electronically Signed By:SAAD GilmanW Intervention Information
== END 2017-02-03 14:31 | disposition hospice, home (50) | DRG 641 ==
LOC: F2N 17:48 → F1N 01-22 14:14
PROVIDERS: ADMIT Internal Medicine; ATTEND Internal Medicine
PROC: 0W993ZZ Drainage of Right Pleural Cavity, Percutaneous Approach (ICD-10-PCS; principal; 2017-01-20)
PROC: 02HV33Z Insertion of Infusion Device into Superior Vena Cava, Percutaneous Approach (ICD-10-PCS; 2017-01-21)
PROC: 0W9930Z Drainage of Right Pleural Cavity with Drainage Device, Percutaneous Approach (ICD-10-PCS; 2017-01-22)
DX: E87.1 Hypo-osmolality and hyponatremia (principal); J91.0 Malignant pleural effusion; N39.0 Urinary tract infection, site not specified; C25.9 Malignant neoplasm of pancreas, unspecified; C78.2 Secondary malignant neoplasm of pleura; C78.7 Secondary malignant neoplasm of liver and intrahepatic bile duct; C78.00 Secondary malignant neoplasm of unspecified lung; C79.89 Secondary malignant neoplasm of other specified sites; B96.20 Unspecified Escherichia coli [E. coli] as the cause of diseases classified elsewhere; R62.7 Adult failure to thrive; M81.0 Age-related osteoporosis without current pathological fracture; J45.909 Unspecified asthma, uncomplicated
CPT/HCPCS: 86301-90; 87449-90; 97110-GP; 97116-GP; 97162-GP; 97530-GP; C1729; C1751; C2617; J0456; J0696; J0697; J1650; J3010